=== PATIENT | female | born 1990 | race Caucasian/White ===

== ENCOUNTER 2022-02-03 16:33 | Emergency (ER) | payer SELFPAY ==
--- OUTSIDE RECORDS SUMMARY | 2022-02-03 16:35 | XMS REPORT | Continuity of Care Document ---
:1990 Author Organization [facility] t Address [address] [place] [address] Care Team Providers Name Role Phone Physician, Primary or Family Admitting Clinician Unavailabl e Payers Payer Name Policy Type Policy Number Effective Date Expiration Date S ource Problems This patient has no known problems. Allergies, Adverse Reactions, Alerts Allergy Allergy Status Severity Reaction(s) Onset Inactive Treating Comm ents Source Name Type Date Date Clinician No Known DA Active U 2018-0 [facility] 12-04 Clear s 00:00: Collins 00 [facility] No Known DA Active U [facility] Allergie 12-04 Clear s 00:00: Collins [facility] Medications This patient has no known medications. Procedures This patient has no known procedures. Encounters Start End Encounter Admission Attending Care Care Encounter Source Date/Time Date/Time Type Type Clinicians Facility Department ID 2019-12-16 [facility] [id number] [facility] 15:50:00 [facility] Results Test Description Test Time Test Comments Results Result [facility] e Comments - XR CHEST 1 V 2019-12-16 FAX: 16:45:00 Veena Ahumada MD [phone] [place]: St: REG Name: ARACELIS MCCLENDON Oran FSED : 1990 Age/S: 29/F Unit #: [id number] Loc: [facility] [place], [place] Phys: Veena Ahumada MD Acct: [id number] Dis Date: Status: REG ER PHONE #: Exam Date: 12/16/2019 1630 FAX #: Reason: cough EXAMS: CPT CODE: [id number] XR CHEST 1 V [id number] Portable chest performed December 16, 2019 1624 hours. COMPARISON: June 07, 2019. CLINICAL HISTORY: cough. DISCUSSION: Single portable chest is submitted. Cardiomediastinal silhouette is normal. Lungs are clear. No acute osseous abnormality. IMPRESSION: Normal one view chest x-ray. at 0264 Reported and signed by: Abbi Van M.D. CC: Veena Ahumada MD Technologist: RT Carina(R) Trnscrd Date/Time/By: 12/16/2019 (5713) : By: Latrice Orig Print D/T: S: 12/16/2019 (6867) PAGE 1 Signed Report INFLUENZA A B POC 2019-12-16 16:17:00 Test Item Value Reference Range Interpretation Comme nts INFLUENZA A POC (test code = NEGATIVE NEGATIVE INFLAAG) INFLUENZA B POC (test code = POSITIVE NEGATIVE Performed by certified seam press operator INFLBAG) at [facility] STREP [facility] A (THROAT)2019-12-16 16:12:00 Test Item Value Reference Range Interpretation Comments AG STREP GROUP A NEGATIVE Negative Performed b y certified (THROAT) (test code = operat or at [place] STREPA) [facility] BASIC METABOLIC [id number] 20:53:00 Test Item Value Reference Range Interpretation Comments SODIUM (test code = 136 mmol/l 134.0-147.0 N NA) POTASSIUM (test code = 4.2 mmol/L 3.6-5.2 N SLIGH TLY HEMOLYSED. K) CHLORIDE (test code = 103 mmol/l 98.0-107.0 N CL) CARBON DIOXIDE (test 27.6 mmol/l 21.0-33.0 N code = CO2) ANION GAP (test code = 9.6 0-20 N GAP) GLUCOSE (test code = 107 mg/dl 70.0-110.0 N GLU) BLOOD UREA NITROGEN 12 mg/dl 7.0-18.0 N (test code = BUN) CREATININE (test code 0.59 mg/dL 0.60-1.30 L = CREAT) GFR NON BLACK (test 128 mL/min 110-120 H code = GFRNONBLACK) GFR BLACK (test code = 154 mL/min 133-145 H GFRBLACK) CALCIUM (test code = 8.4 mg/dl 8.0-10.5 N CA) BASIC METABOLIC [id number] 20:46:00 Test Item Value Reference Range Interpretation Comments SODIUM (test code = NA) 136 mmol/l 134.0-147.0 N POTASSIUM (test code = K) 4.2 mmol/L 3.6-5.2 N CHLORIDE (test code = CL) 103 mmol/l 98.0-107.0 N CARBON DIOXIDE (test code = CO2) 27.6 mmol/l 21.0-33.0 N ANION GAP (test code = GAP) 9.6 0-20 N GLUCOSE (test code = GLU) 107 mg/dl 70.0-110.0 N BLOOD UREA NITROGEN (test code = 12 mg/dl 7.0-18.0 N BUN) CREATININE (test code = CREAT) 0.59 mg/dL 0.60-1.30 L GFR NON BLACK (test code = 128 mL/min 110-120 H GFRNONBLACK) GFR BLACK (test code = GFRBLACK) 154 mL/min 133-145 H CALCIUM (test code = CA) 8.4 mg/dl 8.0-10.5 N TROPONIN I [id number] 20:45:00 Test Item Value Reference Range Interpretation Comments TROPONIN I RAPID 0.01 0.00-0.08 N Negati ve: <= 0.08 (test code = Positive: > = 0.09An TROPIRAP) elevated tropon in value alone is not sufficie nt todiagnose a myocardial infa rction. Rather, the patient'scl inical presentation (h istory, physical exam) and ECGshould be used in conj unction with troponin in the diagnostic evaluation of s uspected myocardial infa rction.A serial sampling protoc ol is recommended to facilitatethe identification of temporal changes in trop onin levelscharacter isrhina [facility]. CBC W/AUTO [id number] 20:45:00 Test Item Value Reference Range Interpretation Comments WHITE BLOOD CELL (test code = 6.8 K/mm3 4.5-11.0 N WBC) RED BLOOD CELL (test code = 4.32 M/mm3 3.80-5.20 N RBC) HEMOGLOBIN (test code = HGB) 13.4 gm/dL 12.0-16.0 N HEMATOCRIT (test code = HCT) 39.6 % 36.0-48.0 N MEAN CELL VOLUME (test code = 91.7 UM3 82.0-99.0 N MCV) MEAN CELL HGB (test code = MCH) 31.0 UUG 25.5-32.5 N MEAN CELL HGB CONCETRATION 33.8 gm/dL 29.0-35.5 N (test code = MCHC) RED CELL DISTRIBUTION WIDTH 13.4 % 11.5-15.0 N (test code = RDW) RED CELL DISTRIBUTION WIDTH SD 45.4 fL 34.8-50.2 N (test code = RDW-SD) PLATELET COUNT (test code = 283 K/mm3 150-400 N PLT) MEAN PLATELET VOLUME (test code 10.2 fl 7.4-10.4 N = MPV) NEUTROPHIL % (test code = NT%) 66.5 % 49.0-76.0 N IMMATURE GRANULOCYTE % (test 0.1 % 0.0-0.4 N code = IG%) LYMPHOCYTE % (test code = LY%) 26.5 % 23.0-38.0 N MONOCYTE % (test code = MO%) 5.3 % 1.0-10.0 N EOSINOPHIL % (test code = EO%) 1.0 % 1.0-5.0 N BASOPHIL % (test code = BA%) 0.6 % 0.0-1.0 N NEUTROPHIL # (test code = NT#) 4.5 K/mm3 2.4-6.3 N IMMATURE GRANULOCYTE # (test 0.01 x10 3/uL 0.00-0.07 N code = IG#) LYMPHOCYTE # (test code = LY#) 1.8 K/mm3 1.2-4.0 N MONOCYTE # (test code = MO#) 0.4 K/mm3 0.0-0.6 N EOSINOPHIL # (test code = EO#) 0.1 K/MM3 0.0-0.7 N BASOPHIL # (test code = BA#) 0.0 K/mm3 0.0-0.2 N - XR CHEST 1 [id number] 20:26:00 FAX: HernadezJesús [phone] [place]: St: PRE Name: JOCELYN MCCLENDONJenna [facility] : 1990 Age/S: 28/F [address] [facility] [employer] [employer] Unit#: [id number] Loc: [place], [place] Phys: Jesú[place] [id number] Acct: [id number] Dis Date: Status: PRE ER PHONE #: [phone] Exam Date: 06/07/20192022 FAX #: [phone] Reason: SOB EXAMS: CPT CODE: [id number] XR CHEST 1 V [id number] CHEST X- RAY 1 VIEW Dictation Location: N13 CLINICAL HISTORY: Shortness of breath Technique: A single frontal view of the chest was obtained. FINDINGS: Bony structures are unremarkable. The aortic, hilar and cardiac outlines are normal. The lungs are clear of infiltrates or suspicious nodules. No pleural effusion or pneumothorax. IMPRESSION: Normal chest x-ray. at 2025 Reported and signed by: Claudia Mcclendon M.D. CC: Jesús Hernadez DO Technologist: RITA GOMEZ Trntaord Date/Time/By: 06/07/2019 (2025) : By: AndrésMVT PAGE 1 Signed Report FAX: Jesús Hernadez DO [phone] [place]: St: PRE -- Name: ARACELIS MCCLENDON [facility] : 1990 Age/S: 28/F [address] Unit #: [id number] Loc: [facility] [place], [place] Phys: [place] [id number] Acct: [id number] Dis Date: Status: PRE ER PHONE #: [phone] Date: 06/07/20192022 FAX #: [phone] Reason: SOB EXAMS: CPT CODE: [id number] XR CHEST 1 V 23943 <Continued> Orig Print D/T: S: 06/07/2019 (2028) PAGE 2 Signed Report
[2022-02-03] MEDS ORDERED: HYDROCODONE/APAP 10/325 TAB ONE (16:50)
--- NOTE | 2022-02-03 17:55 | RAD REPORT ---
EXAM DESCRIPTION: RAD - Lumbar Spine 3 Views - 02/03/2022 5:35 pm CLINICAL HISTORY: Back pain FINDINGS: The alignment of the lumbar spine is satisfactory. Bony density adjacent to the anterior superior aspect L4 vertebral body appears chronic. No acute fra cture or dislocation noted
--- NOTE | 2022-02-03 17:56 | RAD REPORT ---
EXAM DESCRIPTION: RADSacrum And Coccyx02/03/2022 5:35 pm CLINICAL HISTORY: Back pain status post fall FINDINGS: Cortical regularity involves the mid aspect of the sacrum equivocal for a nondisplaced fr acture
--- NOTE | 2022-02-03 18:14 | ER ---
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 Buttocks pain ll1 since. Coronavirus screen: Vaccine status: Patient reports being unvaccinated. Client denies travel out of the [place] in the last 14 days. At this time, the client does not indicate any symptoms associated with coronavirus-19. Ebola Screen: Patient denies travel to an Ebola-affected area in the 21 days before illness onset. Initial Sepsis Screen: Does the patient meet any 2 criteria? No. Patient's initial sepsis screen is negative. Does the patient have a suspected source of infection? No. Patient's initial sepsis screen is negative. Risk Assessment: Do you want to hurt yourself or someone else? Patient reports no desire to harm self or others. Onset of symptoms was February 03, 2022. 16:42 Method Of Arrival: Ambulatory ll1 16:42 Acuity: KAYLEE 4 ll1 16:51 Care prior to arrival: None. Mechanism of Injury: Fall. Trauma event details: Injury ll1 occurred in the [facility]. Triage Assessment: 16:45 General: Appears uncomfortable, Behavior is calm, cooperative, appropriate for age. ll1 Pain: Complains of pain in buttocks Quality of pain is described as aching. Musculoskeletal: Reports pain in buttocks. Injury Description: Bruise. Trauma Activation: Not Applicable Physician: ED Physician; Name: ; Notified At: ; Arrived At: Physician: General Surgeon; Name: ; Notified At: ; Arrived At: Physician: Radiology; Name: ; Notified At: ; Arrived At: Physician: Respiratory; Name: ; Notified At: ; Arrived At: Physician: Lab; Name: ; Notified At: ; Arrived At: Historical: - Allergies: 16:43 No Known Allergies; ll1 - PMHx: 16:43 Asthma; ll1 - PSHx: 16:43 None; ll1 - Immunization history:: Client reports having NOT received the Covid vaccine. - Social history:: Smoking status: Patient denies any tobacco usage or history of. - Immunization history: Last tetanus immunization: - up to date. Screenin:50 Abuse screen: Denies threats or abuse. Nutritional screening: No deficits noted. ll1 Tuberculosis screening: No symptoms or risk factors identified. Fall Risk Fall in past 12 months (25 points). Gait- Impaired (20 pts.). Total N[place]era Fall Scale indicates High Risk Score (45 or more points). Fall prevention measures have been instituted. Side Rails Up X 2 Frequent Obs/Assessments Occuring As available patient and family educated on Fall Prevention Program and Strategies. Primary Survey: 16:50 NO uncontrolled hemorrhage observed. A: Airway: patent. Breathing/Chest: Respiratory ll1 effort: spontaneous, unlabored. Circulation: Skin color: pink. Disability Alert. Exposure/Environment: A warming method has been applied: A warm blanket has been provided to the patient. 16:51 Reassessment Airway Airway Patent Breathing/Chest Respiratory pattern Regular ll1 Circulation Color Point View Disability Alert. Assessment: 17:25 General: Appears in no apparent distress. uncomfortable, Behavior is calm, cooperative, ab2 appropriate for age. Pain: Complains of pain in right hip. Neuro: No deficits noted. Level of Consciousness is awake, alert, obeys commands, Oriented to person, place, time, situation, Appropriate for age Sexual Abuse Counsellor are equal bilaterally Moves all extremities. Gait is steady, Speech is normal. Cardiovascular: No deficits noted. Denies chest pain, shortness of breath, Heart tones S1 S2 present Patient's skin is warm and dry. Respiratory: No deficits noted. Airway is patent Respiratory effort is even, unlabored, Respiratory pattern is regular, symmetrical. GI: No deficits noted. No signs and/or symptoms were reported involving the gastrointestinal system. : No deficits noted. No signs and/or symptoms were reported regarding the genitourinary system. EENT: No deficits noted. No signs and/or symptoms were reported regarding the EENT system. Derm: No deficits noted. No signs and/or symptoms reported regarding the dermatologic system. Skin is intact, is healthy with good turgor, Skin is pink, warm \T\ dry. Musculoskeletal: Reports pain in right hip. Injury Description: Pt fell down stairs landed on right leg. Vital Signs: 16:42 BP 119 / 98; Pulse 96; Resp 18; Temp 98.3; Pulse Ox 100% ; Height 4 ft. 11 in. (149.86 ll1 cm); Pain 6/10; 18:24 BP 126 / 89; Pulse 91; Resp 18; Pulse Ox 98% on R/A; ab2 Ar Coma Score: 16:51 Eye Response: spontaneous(4). Verbal Response: oriented(5). Motor Response: obeys ll1 commands(6). Total: 15. Trauma Score (Adult): 16:51 Eye Response: spontaneous(1); Verbal Response: oriented(1); Motor Response: obeys ll1 commands(2); Systolic BP: > 89 mm Hg(4); Respiratory Rate: 10 to 29 per min(4); Ar Score: 15; Trauma Score: 12 ED Course: 16:35 Patient arrived in ED. ds1 16:43 Triage completed. ll1 16:43 Arm band placed on. ll1 16:47 Koby Reza PA is PHCP. jr8 16:47 Jason Magallon DO is Attending Physician. jr8 16:51 Patient maintains SpO2 saturation greater than 95% on room air. ll1 16:52 Patient has correct armband on for positive identification. Bed in low position. Call ll1 light in reach. Side rails up X 1. Cardiac monitoring not applicable on this patient. 16:52 Thermoregulation: warm blanket given to patient. ll1 17:25 Mac Irwin is Primary Nurse. ab2 17:26 No provider procedures requiring assistance completed. ab2 17:36 XRAY Lumbar Spine (3 Views) In Process Unspecified. EDMS 17:36 Sacrum And Coccyx XRAY In Process Unspecified. EDMS 18:25 Patient did not have IV access during this emergency room visit. ab2 Administered Medications: 16:49 Drug: [place] (HYDROcodone-acetaminophen) 10 mg-325 mg 1 tabs {Note: rass 0.} Route: PO; ll1 Outcome: 18:13 Discharge ordered by . jr8 18:24 Discharged to home ambulatory, with family. ab2 18:24 Condition: good 18:24 Discharge instructions given to patient, family, Instructed on discharge instructions, follow up and referral plans. Demonstrated understanding of instructions, follow-up care, medications, Prescriptions given X 1. 18:25 Patient left the ED. ab2 Signatures: Dispatcher [employer] Samantha Tong ds1 Koby Reza PA PA jr8 Deepali Jones RN RN ll1 Mac Irwin ab2
--- NOTE | 2022-02-03 18:14 | EDPHYS ---
Physician Documentation [facility] Name: Marcella Mcclendon Age: 31 yrs Sex: Female : 1990 Arrival Date: 02/03/2022 Time: 16:35 Bed 11 Private MD: ED Physician Jason Magallon HPI: 02/03 18:18 This 31 yrs old Female presents to ER via Ambulatory with complaints of Fall Injury. jr8 18:18 Onset: The symptoms/episode began/occurred acutely, today. Associated injuries: The jr8 patient sustained pelvis. Severity of symptoms: At their worst the symptoms were moderate, in the emergency department the symptoms are unchanged. The patient has not experienced similar symptoms in the past. The patient has not recently seen a physician. This is a 31-year-old female who presented to the emergency room status post fall. Patient stated that she was coming down the stairs when she slipped causing her to fall on her buttock. Stated that she bounced a couple times and immediately had pain to the tailbone region. Denies any other trauma. Historical: - Allergies: 16:43 No Known Allergies; ll1 - PMHx: 16:43 Asthma; ll1 - PSHx: 16:43 None; ll1 - Immunization history:: Client reports having NOT received the Covid vaccine. - Social history:: Smoking status: Patient denies any tobacco usage or history of. - Immunization history: Last tetanus immunization: - up to date. ROS: 18:18 Eyes: Negative for injury, pain, redness, and discharge, ENT: Negative for injury, jr8 pain, and discharge, Neck: Negative for injury, pain, and swelling, Cardiovascular: Negative for chest pain, palpitations, and edema, Respiratory: Negative for shortness of breath, cough, wheezing, and pleuritic chest pain, Abdomen/GI: Negative for abdominal pain, nausea, vomiting, diarrhea, and constipation, MS/Extremity: Negative for injury and deformity, Skin: Negative for injury, rash, and discoloration, Neuro: Negative for headache, weakness, numbness, tingling, and seizure. 18:18 Back: Positive for pain at rest, pain with movement, of the sacrum. Exam: 18:18 Constitutional: This is a well developed, well nourished patient who is awake, alert, jr8 and in no acute distress. Cardiovascular: Regular rate and rhythm with a normal S1 and S2. No gallops, murmurs, or rubs. Normal PMI, no JVD. No pulse deficits. Respiratory: Lungs have equal breath sounds bilaterally, clear to auscultation and percussion. No rales, rhonchi or wheezes noted. No increased work of breathing, no retractions or nasal flaring. Abdomen/GI: Soft, non-tender, with normal bowel sounds. No distension or tympany. No guarding or rebound. No evidence of tenderness throughout. Skin: Warm, dry with normal turgor. Normal color with no rashes, no lesions, and no evidence of cellulitis. MS/ Extremity: Pulses equal, no cyanosis. Neurovascular intact. Full, normal range of motion. Neuro: Awake and alert, GCS 15, oriented to person, place, time, and situation. Cranial nerves II-XII grossly intact. Motor strength 5/5 in all extremities. Sensory grossly intact. 18:18 Back: pain, that is moderate, of the sacrum, ROM is normal, normal spinal alignment noted, CVA tenderness, is absent. Vital Signs: 16:42 BP 119 / 98; Pulse 96; Resp 18; Temp 98.3; Pulse Ox 100% ; Height 4 ft. 11 in. (149.86 ll1 cm); Pain 6/10; 18:24 BP 126 / 89; Pulse 91; Resp 18; Pulse Ox 98% on R/A; ab2 Ar Coma Score: 16:51 Eye Response: spontaneous(4). Verbal Response: oriented(5). Motor Response: obeys ll1 commands(6). Total: 15. Trauma Score (Adult): 16:51 Eye Response: spontaneous(1); Verbal Response: oriented(1); Motor Response: obeys ll1 commands(2); Systolic BP: > 89 mm Hg(4); Respiratory Rate: 10 to 29 per min(4); Ar Score: 15; Trauma Score: 12 MDM: 16:54 Patient medically screened. jr8 18:08 Data reviewed: vital signs, nurses notes, radiologic studies, plain films. Data jr8 interpreted: Pulse oximetry: on room air is 100 %. Interpretation: normal. Counseling: I had a detailed discussion with the patient and/or guardian regarding: the historical points, exam findings, and any diagnostic results supporting the discharge/admit diagnosis, radiology results, the need for outpatient follow up, a family practitioner, to return to the emergency department if symptoms worsen or persist or if there are any questions or concerns that arise at home. 02/03 16:48 Order name: XRAY Lumbar Spine (3 Views); Complete Time: 18:06 jr8 02/03 16:48 Order name: Sacrum And Coccyx XRAY; Complete Time: 18:06 jr8 Administered Medications: 16:49 Drug: [place] (HYDROcodone-acetaminophen) 10 mg-325 mg 1 tabs {Note: rass 0.} Route: PO; ll1 Disposition: 02/04 18:11 Co-signature as Attending Physician, Jason Magallon DO I was immediately available on-site ms3 in the Emergency Department for consultation in the care of the patient.. Disposition Summary: 02/03/22 18:13 Discharge Ordered Location: Home jr8 Problem: new jr8 Symptoms: have improved jr8 Condition: Stable jr8 Diagnosis - Fracture of sacrum jr8 Followup: jr8 - With: Private Physician - When: 5 - 6 days - Reason: Recheck today's complaints, Continuance of care, Re-evaluation by your physician Discharge Instructions: - Discharge Summary Sheet jr8 - Tailbone Injury jr8 Forms: - Medication Reconciliation Form jr8 - Thank You Letter jr8 - Antibiotic Education jr8 - Prescription Opioid Use jr8 Prescriptions: - Tylenol-Codeine #3 300 mg-30 mg Oral - take 2 tablet by ORAL route every 8 hours As needed; 20 tablet; Refills: 0, jr8 Product Selection Permitted Signatures: Dispatcher [employer] EDKoby Lin PA PA jr8 Deepali Jones, RN RN ll1 Jason Magallon DO DO ms3
[2022-02-03 19:01] VITALS: TEMP 98.3
[2022-02-03 19:02] VITALS: BP 126/89; O2SAT 98
== END 2022-02-03 18:25 | disposition home or self-care (01) ==
LOC: ER 16:33
DX: S32.19XA Other fracture of sacrum, initial encounter for closed fracture (principal); W10.9XXA Fall (on) (from) unspecified stairs and steps, initial encounter
CPT/HCPCS: 72100; 72220; 99284

== ENCOUNTER 2024-12-08 23:25 | Emergency (ER) | payer SELFPAY ==
--- OUTSIDE RECORDS SUMMARY | 2024-12-08 23:27 | XMS REPORT | Continuity of Care Document ---
Author Name Unknown Address [address] [facility]. 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 Role Phone Physician, No Primary or Family Admitting Clinic fay Unavailable Payers Payer Name Policy Type Policy Number Effective Date Expirati on Date Source Allergies, Adverse Reactions, Alerts Allergy Name Allergy Type Status Severity Reaction(s) Onset Date Inactive Date Treating Clinician Comments Source No Known Allergie s DA Active U 12-04 00:00: 00 [facility] No Known Allergie s DA Active U 12-04 00:00: 00 [facility] Encounters Start Date/Time End Date/Time Encounter Type Admission Type Attending Clinicians Care Facility Care Department Encounter ID Source 2019-12-16 15:50:00 Inpatient HCACL CHENCHO [id number] 73 [facility] 2023-11-08 14:32:37 2023-11-08 14:32:37 Outpatient [facility] SFA [id number] Rod Carballo Results Test Description Test Time Test Comments Results Result Co mments Source LIPID [id number] 05:11:52* Test Item Value Reference Range Interpretation Comme nts CHOLESTEROL (test code = 2210) 179 MG/DL <200 TRIGLYCERIDES (test code = 2232) 87 MG/DL <150 HDL CHOLESTEROL (test code = 2220) 40 MG/DL >39 CALC LDL CHOL (test code = 2236) 120 MG/DL <100 H NOTE: CALCULATED LDL IS BASED ON SHAHLA-RICHARDS METHOD WHICHINCLUDES ADJUSTABLE TRIGLYCERIDE:VLDL CHOLESTEROL RATIO.THIS FACTOR VARIES BY MEASURED TRIGLYCERIDE AND NON-HDLCHOLESTEROL CONCENTRATIONS WITH INCREASED CALCULATED LDL SEENIN HIGHER TRIGLYCERIDE OR LOWER NON-HDL SPECIMENS. FOR MOREINFORMATION, SEE CLIENT ANNOUNCEMENT AT [email or web address] RISK RATIO LDL/HDL (test code = 2237) 3.00 RATIO <3.22 COMPREHENSIVE METABOLIC [id number] 05:11:52* Test Item Value Reference Range Interpretation Comme nts GLUCOSE (test code = 2216) 91 MG/DL 70-99 BUN (test code = 2207) 11 MG/DL 6-20 CREATININE (test code = 2213) 0.58 MG/DL 0.60-1.30 L eGFR (2020 CKD-EPI) (test code = 06350) 122 ML/MIN/1.73 >60 CALC BUN/CREAT (test code = 5) 19 RATIO 6-28 SODIUM (test code = 2230) 141 MEQ/L 133-146 POTASSIUM (test code = 2228) 5.1 MEQ/L 3.5-5.4 CHLORIDE (test code = 2215) 105 MEQ/L 95-107 CARBON DIOXIDE (test code = 2206) 24 MEQ/L 19-31 CALCIUM (test code = 2209) 9.4 MG/DL 8.5-10.5 PROTEIN, TOTAL (test code = 2228) 6.7 G/DL 6.1-8.3 ALBUMIN (test code = 2200) 4.4 G/DL 3.5-5.2 CALC GLOBULIN (test code = 2240) 2.3 G/DL 1.9-3.7 CALC A/G RATIO (test code = 223) 1.9 RATIO 1.0-2.6 BILIRUBIN, TOTAL (test code = 2206) 0.3 MG/DL <=1.2 ALKALINE PHOSPHATASE (test code = 2203) 106 U/L 40-114 AST (test code = 2218) 17 U/L 9-40 ALT (test code = 2219) 21 U/L 5-40 CBC W/AUTO DIFF WITH [id number] 01:46:53* Test Item Value Reference Range Interpretation Comme nts WBC (test code = 1001) 5.5 K/UL 3.5-11.0 RBC (test code = 1002) 4.80 M/UL 3.80-5.40 HEMOGLOBIN (test code = 1003) 14.2 G/DL 11.5-15.5 HEMATOCRIT (test code = 1004) 43.0 % 34.0-45.0 MCV (test code = 1005) 89.6 fL 80.0-99.0 MCH (test code = 1006) 29.6 PG 25.0-33.0 MCHC (test code = 1007) 33.0 G/DL 31.0-36.0 RDW (test code = 1038) 12.4 % 11.5-15.0 NEUTROPHILS (test code = 1008) 49.2 % LYMPHOCYTES (test code = 1010) 39.1 % MONOCYTES (test code = 1011) 8.1 % EOSINOPHILS (test code = 1012) 2.5 % BASOPHILS (test code = 1013) 0.7 % IMMATURE GRANULOCYTES (test code = 1036) 0.4 % NUCLEATED RBCS (test code = 1065) 0.0 /100 WBC'S See_Comment [Automated messa ge] The system which generated this result transmitted reference range: 0.0. The reference range was not used to interpret this result as normal/abnormal. PLATELET COUNT (test code = 1015) 293 K/UL 130-400 ABSOLUTE NEUTROPHILS (test code = 1066) 2.72 K/UL 1.50-7.50 ABSOLUTE LYMPHOCYTES (test code = 1067) 2.16 K/UL 1.00-4.00 ABSOLUTE MONOCYTES (test code = 1068) 0.45 K/UL 0.20-1.00 ABSOLUTE EOSINOPHILS (test code = 1040) 0.14 K/UL 0.00-0.50 ABSOLUTE BASOPHILS (test code = 1069) 0.04 K/UL 0.00-0.20 ABS IMMATURE GRANULOCYTES (test code = 1020) 0.02 K/UL 0.00-0.10 ABS NUCLEATED RBCS (test code = 14829) 0.00 K/UL 0.00-0.11 - XR CHEST 1 [id number] 16:45:00FAX: Veena Ahumada MD [phone] [place]: St: REG Name: ARACELIS MCCLENDON [place] FSED : 1990 Age/S: 29/F Unit #: [id number] Loc: [place], [place] Phys: Veena Ahumada MD Acct: [id number] Dis Date: Status: REG ER PHONE #: Exam Date: 12/16/2019 1630 FAX #: Reason: cough EXAMS: CPT CODE: [id number] XRCHEST 1 V 75105 Portable chest performed December 16, 2019 1624 hours. COMPARISON: June 07, 2019. CLINICAL HISTORY: cough. DISCUSSION: Single portable chest is submitted. Cardiomediastinal silhouetteis normal. Lungs are clear. No acute osseous abnormality. IMPRESSION: Normal one view chest x-ray. at 9062 Reported and signed by: Abbi Van M.D. 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 CHLORIDE (test code = CL) 103 mmol/l 98.0-107.0 N CARBON DIOXIDE (test code = CO2) 27.6 mmol/l 21.0-33.0 N ANION GAP (test code = GAP) 9.6 0-20 N GLUCOSE (test code = GLU) 107 mg/dl 70.0-110.0 N BLOOD UREA NITROGEN (test code = BUN) 12 mg/dl 7.0-18.0 N CREATININE (test code = CREAT) 0.59 mg/dL 0.60-1.30 L GFR NON BLACK (test code = GFRNONBLACK) 128 mL/min 110-120 H GFR BLACK (test code = GFRBLACK) 154 mL/min 133-145 H CALCIUM (test code = CA) 8.4 mg/dl 8.0-10.5 N BASIC METABOLIC [id number] 20:46:00* Test Item Value Reference Range Interpretation Comme nts SODIUM (test code = NA) 136 mmol/l 134.0-147.0 N POTASSIUM (test code = K) 4.2 mmol/L 3.6-5.2 N CHLORIDE (test code = CL) 103 mmol/l 98.0-107.0 N CARBON DIOXIDE (test code = CO2) 27.6 mmol/l 21.0-33.0 N ANION GAP (test code = GAP) 9.6 0-20 N GLUCOSE (test code = GLU) 107 mg/dl 70.0-110.0 N BLOOD UREA NITROGEN (test co de = BUN) 12 mg/dl 7.0-18.0 N CREATININE (test code = CREAT) 0.59 mg/dL 0.60-1.30 L GFR NON BLACK (test code = GFRNONBLACK) 128 mL/min 110-120 H GFR BLACK (test code = GFRBLACK) 154 mL/min 133-145 H CALCIUM (test code = CA) 8.4 mg/dl 8.0-10.5 N TROPONIN I [id number] 20:45:00* Test Item Value Reference Range Interpretation Comme nts TROPONIN I RAPID (test code = TROPIRAP) 0.01 0.00-0.08 N Negative: <= 0.0 8 Positive: >= 0.09An elevated troponin value alone is not sufficient todiagnose a myocardial infarction. Rather, the patient'sclinical presentation (history, physical exam) and ECGshould be used in conjunction with troponin in thediagnostic evaluation of suspected myocardial infarction.A serial sampling protocol is recommended to facilitatethe identification of temporal changes in troponin levelscharacteristic of MD. CBC W/AUTO [id number] 20:45:00* Test Item Value Reference Range Interpretation Comme nts WHITE BLOOD CELL (test code = WBC) 6.8 K/mm3 4.5-11.0 N RED BLOOD CELL (test code = RBC) 4.32 M/mm3 3.80-5.20 N HEMOGLOBIN (test code = HGB) 13.4 gm/dL 12.0-16.0 N HEMATOCRIT (test code = HCT) 39.6 % 36.0-48.0 N MEAN CELL VOLUME (test code = MCV) 91.7 UM3 82.0-99.0 N MEAN CELL HGB (test code = MCH) 31.0 UUG 25.5-32.5 N MEAN CELL HGB CONCETRATION (test code = MCHC) 33.8 gm/dL 29.0-35.5 N RED CELL DISTRIBUTION WIDTH (test code = RDW) 13.4 % 11.5-15.0 N RED CELL DISTRIBUTION WIDTH SD (test code = RDW-SD) 45.4 fL 34.8-50.2 N PLATELET COUNT (test code = PLT) 283 K/mm3 150-400 N MEAN PLATELET VOLUME (test c ode = MPV) 10.2 fl 7.4-10.4 N NEUTROPHIL % (test code = NT%) 66.5 % 49.0-76.0 N IMMATURE GRANULOCYTE % (test code = IG%) 0.1 % 0.0-0.4 N LYMPHOCYTE % (test code = LY%) 26.5 % 23.0-38.0 N MONOCYTE % (test code = MO%) 5.3 % 1.0-10.0 N EOSINOPHIL % (test code = EO%) 1.0 % 1.0-5.0 N BASOPHIL % (test code = BA%) 0.6 % 0.0-1.0 N NEUTROPHIL # (test code = NT#) 4.5 K/mm3 2.4-6.3 N IMMATURE GRANULOCYTE # (test code = IG#) 0.01 x10 3/uL 0.00-0.07 N LYMPHOCYTE # (test code = LY#) 1.8 K/mm3 1.2-4.0 N MONOCYTE # (test code = MO#) 0.4 K/mm3 0.0-0.6 N EOSINOPHIL # (test code = EO#) 0.1 K/MM3 0.0-0.7 N BASOPHIL # (test code = BA#) 0.0 K/mm3 0.0-0.2 N - XR CHEST 1 [id number] 20:26:00FAX: Jesús Hernadez DO [phone] [place]: St: PRE Name: SKYEARACELIS [facility] : 1990 Age/S: 28/F [address] [facility] Unit #: [id number] Loc: [place], [place] Phys: Jesú[place] [address] Acct: [id number] Dis Date: Status: PRE ER PHONE #: [phone] Exam Date: 06/07/20192022 FAX #: [phone] Reason: SOB EXAMS: CPT CODE: [id number] XR CHEST 1 V 32152 CHEST X-RAY 1 VIEW Dictation Location: N13 CLINICAL HISTORY: [...] CC: Jesús Hernadez DO Technologist: RITA GOMEZ Trnscrd Date/Time/By: 06/07/2019 (2025) : By: Saad PAGE 1 Signed Report FAX: Hero Hernadez [phone] [place]: St: PRE Name: JOCELYN MCCLENDONJenna [facility] : 1990 Age/S: 28/F [address] [facility] Unit #: [id number] [place] Phys: Jesú[place] [address] Acct: [id number] Dis Date: Status: PRE ER PHONE #: [phone] Exam Date: 06/07/20192022 FAX #: [phone] Reason: SOB EXAMS: CPT CODE: [id number] XR CHEST 1 V 96945 (Continued) Orig Print D/T: S: 06/07/2019 (2028) PAGE 2 Signed Report
[2024-12-09] MEDS ORDERED: KETOROLAC 10 MG TAB ONE (00:46)
[2024-12-09] MEDS ORDERED: BENZONATATE 100 MG CAP PO ONE (00:46)
[2024-12-09] MEDS ORDERED: PROMETHAZINE 25 MG TABLET ONE (00:46)
[2024-12-09] MEDS ORDERED: CODEINE 30MG/APAP 300MG TAB ONE (00:46)
[2024-12-09] MEDS ORDERED: GUAIFENESIN/DM 5 ML UCUP ONE (00:47)
[2024-12-09 01:19] LABS: Specific Gravity 1.028 (1.005-1.030)
[2024-12-09 01:20] LABS: Specific Gravity 1.028 (1.005-1.030); Sqamous Epithelial <5 /HPF (None Seen); Urine Bacteria None Seen /HPF (<20); Urine Bilirubin NEGATIVE (Negative); Urine Blood 2+ (Negative); Urine Clarity Turbid (Clear); Urine Color Yellow (Yellow); Urine Culture Reflex Order NOT NEEDED; Urine Glucose NEGATIVE (Negative); Urine Ketones 2+ (Negative); Urine Micro Reflex YN NO BILL MICROSCOPIC; Urine Mucus Slight /HPF (None Seen); Urine Nitrite NEGATIVE (Negative); Urine Protein TRACE (Negative); Urine RBC >50 /HPF (None Seen); Urine Urobilinogen Normal (Normal); Urine WBC <5 /HPF (<5); Urine pH 5.5 (5.0-7.0)
--- NOTE | 2024-12-09 01:42 | ER ---
Nurse's Notes [facility] Name: Marcella Mcclendon Age: 34 yrs Sex: Female : 1990 Arrival Date: 12/08/2024 Time: 23:25 Bed 14 Private MD: Diagnosis: Acute Influenza A ;Acute viral illness, acute viral bronchitis Presentation: 12/09 00:00 Chief complaint: Patient states: CHEST WALL PAIN WHEN COUGHING, DRY COUGH. MY SON HAS ha1 FLU A. 00:00 Coronavirus screen: Client denies travel out of the [place] in the last 14 days. Ebola ha1 Screen: No symptoms or risks identified at this time. Initial Sepsis Screen: Does the patient meet any 2 criteria? No. Patient's initial sepsis screen is negative. Does the patient have a suspected source of infection? No. Patient's initial sepsis screen is negative. Risk Assessment: Do you want to hurt yourself or someone else? Patient reports no desire to harm self or others. Onset of symptoms was December 09, 2024. 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 - Infectious Disease History:: Denies. - Social history:: Smoking status: Patient denies any tobacco usage or history of. - Family history:: not pertinent. Screenin:41 [facility] ED Fall Risk Assessment (Adult) History of falling in the last 3 months, cp4 including since admission No falls in past 3 months (0 pts) Confusion or Disorientation No (0 pts) Intoxicated or Sedated No (0 pts) Impaired Gait No (0 pts) Mobility Assist Device Used No (0 pt) Altered Elimination No (0 pt) Score/Fall Risk Level 0 - 2 = Low Risk Oriented to surroundings, Maintained a safe environment, Assessed \T\ reinforced patient's understanding of fall precautions, Hourly rounding (assess needs \T\ fall precautionary measures) done. Abuse screen: Denies threats or abuse. Denies injuries from another. Nutritional screening: No deficits noted. Tuberculosis screening: No symptoms or risk factors identified. Assessment: 00:41 General: Appears in no apparent distress. comfortable, Behavior is calm, cooperative, cp4 appropriate for age. Pain: Complains of pain in chest Pain does not radiate. Pain currently is 6 out of 10 on a pain scale. Pain began gradually. Neuro: Level of Consciousness is awake, alert, obeys commands, Oriented to person, place, time, situation. Cardiovascular: Patient's skin is warm and dry. Respiratory: Airway is patent Respiratory effort is even, unlabored. GI: No signs and/or symptoms were reported involving the gastrointestinal system. : No signs and/or symptoms were reported regarding the genitourinary system. EENT: No signs and/or symptoms were reported regarding the EENT system. Derm: No signs and/or symptoms reported regarding the dermatologic system. Musculoskeletal: No signs and/or symptoms reported regarding the musculoskeletal system. Vital Signs: 00:00 BP 141 / 82; Pulse 100; Resp 18 S; Temp 100(O); Pulse Ox 98% on R/A; Weight 91.17 kg; ha1 Height 4 ft. 1 in. ; 01:57 BP 137 / 80; Pulse 94; Resp 18; Pulse Ox 100% ; cp4 00:00 Body Mass Index 58.86 (91.17 kg, 124.46 cm) ha1 Ar Coma Score: 02:26 Eye Response: spontaneous(4). Motor Response: obeys commands(6). Verbal Response: sp4 oriented(5). Total: 15. ED Course: 12/08 23:25 Patient arrived in ED. jj6 23:32 Antoine Hansen MD is Attending Physician. sp4 12/09 00:15 Triage completed. ha1 00:40 Janna Singleton is Primary Nurse. cp4 00:41 Bed in low position. Call light in reach. Side rails up X 1. Client placed on cp4 continuous cardiac and pulse oximetry monitoring. NIBP monitoring applied. lunchroom monitor on. Pulse ox on. NIBP on. 01:57 Provided Education on: influenza. cp4 01:57 Arm band placed on right wrist. Patient placed in waiting room. cp4 01:57 No provider procedures requiring assistance completed. Patient did not have IV access cp4 during this emergency room visit. Patient maintains SpO2 saturation greater than 95% on room air. Administered Medications: 00:50 Drug: Dextromethorphan-Guaifenesin PO Liquid 10 mg-100 mg/5 mL 20 ml PO once Route: PO; cp4 01:45 Follow up: Response: No adverse reaction cp4 00:51 Drug: Acetaminophen-Codeine PO (300 mg-30 mg) 2 tabs PO once; RASS on ADMIN: Combtv4, cp4 Very Agttd3, Agttd2, Rstlss1, AlertClm0, Drwsy-1, Lt Sdtn-2, Mod Sdtn-3, Dp Sdtn-4, UnArsble-5 Route: PO; 01:44 Follow up: Response: No adverse reaction; Pain is decreased cp4 00:51 Drug: Promethazine PO 25 mg PO once Route: PO; cp4 01:44 Follow up: Response: No adverse reaction cp4 00:51 Drug: Ketorolac PO 10 mg PO once Route: PO; cp4 01:44 Follow up: Response: No adverse reaction; Pain is decreased cp4 00:51 Drug: Tessalon Perle PO 200 mg PO once Route: PO; cp4 01:44 Follow up: Response: No adverse reaction cp4 01:56 Drug: [place] PO 10 mg-325 mg 1 tabs PO once Route: PO; cp4 01:56 Follow up: Response: No adverse reaction cp4 Medication: 00:41 VIS not applicable for this client. cp4 Outcome: 01:42 Discharge ordered by . sp4 01:57 Discharged to home ambulatory, cp4 01:57 Condition: stable 01:57 Discharge instructions given to patient, family, Instructed on discharge instructions, follow up and referral plans. medication usage, Demonstrated understanding of instructions, follow-up care, medications, Prescriptions given X 4, 01:58 Patient left the ED. cp4 Signatures: Shoshana Suarez jj6 Arlet Morrissey RN RN ha1 Antoine Hansen MD MD sp4 Janna Singleton cp4 Corrections: (The following items were deleted from the chart) 00:16 00:00 Chief complaint: Patient states: CHEST WALL PAIN WHEN COUGHING, DRY COUGH ha1 ha1
--- NOTE | 2024-12-09 01:42 | EDPHYS ---
Physician Documentation [facility] Name: Marcella Mcclendon Age: 34 yrs Sex: Female : 1990 Arrival Date: 12/08/2024 Time: 23:25 Bed 14 Private MD: ED Physician Antoine Hansen HPI: 12/08 23:32 This 34 yrs old Female presents to ER via Unassigned with complaints of sp4 Cough, Chest Wall Pain. 12/09 02:26 34-year-old female presents with acute onset fever chills sore throat, chest wall pain sp4 cough and nausea. Symptoms started in the last 3 days. 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 - Infectious Disease History:: Denies. - Social history:: Smoking status: Patient denies any tobacco usage or history of. - Family history:: not pertinent. ROS: 02:26 Constitutional: Positive fever chills, positive sore throat, positive chest wall pain, sp4 positive nonproductive cough, positive nausea, positive body aches 02:26 All other systems are negative, Exam: 02:26 Constitutional: This is a well developed, well nourished patient who is awake, alert, sp4 and in no acute distress. Head/Face: Normocephalic, atraumatic. Eyes: Pupils equal round and reactive to light, extra-ocular motions intact. Lids and lashes normal. Conjunctiva and sclera are not injected. Cornea within normal limits. Periorbital areas with no swelling, redness, or edema. ENT: Nares patent. No nasal discharge, no septal abnormalities noted. Tympanic membranes are normal and external auditory canals are clear. Oropharynx with no redness, swelling, or masses, exudates, or evidence of obstruction, uvula midline. Mucous membranes moist. Neck: Trachea midline, no thyromegaly or masses palpated, and no cervical lymphadenopathy. Supple, full range of motion without nuchal rigidity, or vertebral point tenderness. Chest/axilla: Normal chest wall appearance and motion. Nontender with no deformity. No lesions are appreciated. Cardiovascular: Regular rate and rhythm with a normal S1 and S2. No gallops, murmurs, or rubs. Normal PMI, no JVD. No pulse deficits. Respiratory: Lungs have equal breath sounds bilaterally, clear to auscultation and percussion. No rales, rhonchi or wheezes noted. No increased work of breathing, no retractions or nasal flaring. Abdomen/GI: Soft, with normal bowel sounds. No distension or tympany. No guarding or rebound. No evidence of tenderness throughout. Back: No spinal tenderness. No costovertebral tenderness. Skin: Warm, dry with normal turgor. Normal color with no rashes, no lesions, and no evidence of cellulitis. MS/ Extremity: Pulses equal, no cyanosis. Neurovascular intact. Full, normal range of motion. Neuro: Awake and alert, GCS 15, oriented to person, place, time, and situation. Cranial nerves II-XII grossly intact. Motor strength 5/5 in all extremities. Sensory grossly intact. Psych: Awake, alert, with orientation to person, place and time. Behavior, mood, and affect are within normal limits Vital Signs: 00:00 BP 141 / 82; Pulse 100; Resp 18 S; Temp 100(O); Pulse Ox 98% on R/A; Weight 91.17 kg; ha1 Height 4 ft. 1 in. ; 01:57 BP 137 / 80; Pulse 94; Resp 18; Pulse Ox 100% ; cp4 00:00 Body Mass Index 58.86 (91.17 kg, 124.46 cm) ha1 Edwards Coma Score: 02:26 Eye Response: spontaneous(4). Motor Response: obeys commands(6). Verbal Response: sp4 oriented(5). Total: 15. MDM: 12/08 23:33 Medical Screening Exam initiated sp4 12/09 02:26 Differential Diagnosis: Bronchitis Influenza Upper Respiratory Infection Sinusitis sp4 Pharyngitis. Data reviewed: vital signs, nurses notes, lab test result(s). ED course: Patient positive for influenza A. At this time we will treat with Tamiflu, stable for discharge home.. 12/08 23:42 Order name: Influenza Screen (a \T\ B); Complete Time: 01:37 sp4 12/09 00:06 Order name: Urinalysis W/Microscopic; Complete Time: 01:37 sp4 12/09 00:06 Order name: Test, Urine; Complete Time: 01:37 sp4 Administered Medications: 00:50 Drug: Dextromethorphan-Guaifenesin PO Liquid 10 mg-100 mg/5 mL 20 ml PO once Route: PO; cp4 01:45 Follow up: Response: No adverse reaction cp4 00:51 Drug: Acetaminophen-Codeine PO (300 mg-30 mg) 2 tabs PO once; RASS on ADMIN: Combtv4, cp4 Very Agttd3, Agttd2, Rstlss1, AlertClm0, Drwsy-1, Lt Sdtn-2, Mod Sdtn-3, Dp Sdtn-4, UnArsble-5 Route: PO; 01:44 Follow up: Response: No adverse reaction; Pain is decreased cp4 00:51 Drug: Promethazine PO 25 mg PO once Route: PO; cp4 01:44 Follow up: Response: No adverse reaction cp4 00:51 Drug: Ketorolac PO 10 mg PO once Route: PO; cp4 01:44 Follow up: Response: No adverse reaction; Pain is decreased cp4 00:51 Drug: Tessalon Perle PO 200 mg PO once Route: PO; cp4 01:44 Follow up: Response: No adverse reaction cp4 01:56 Drug: [place] PO 10 mg-325 mg 1 tabs PO once Route: PO; cp4 01:56 Follow up: Response: No adverse reaction cp4 Disposition Summary: 12/09/24 01:42 Discharge Ordered Notes: Location: Home sp4 Problem: new sp4 Symptoms: have improved sp4 Condition: Stable sp4 Diagnosis - Acute Influenza A sp4 - Acute viral illness, acute viral bronchitis sp4 Followup: sp4 - With: Private Physician - When: 7 - 10 days - Reason: Recheck today's complaints Discharge Instructions: - Discharge Summary Sheet sp4 - Influenza, Adult sp4 Forms: - Patient Portal Instructions sp4 Prescriptions: - dextromethorphan-guaifenesin 20-400 mg Oral tablet - take 1 tablet ORAL route every 4 hours PRN cough; 40 tablet; Refills: 0, sp4 Product Selection Permitted - Ibuprofen 800 mg Oral Tablet - take 1 tablet ORAL route every 8 hours As needed take with food; 30 tablet; sp4 Refills: 0, Product Selection Permitted - promethazine 25 mg Oral tablet - take 1 tablet ORAL route every 6 hours As needed PRN nausea; 30 tablet; sp4 Refills: 0, Product Selection Permitted - Tamiflu 75 mg Oral capsule - take 1 tablet ORAL route every 12 hours for 5 days; 10 tablet; Refills: 0, sp4 Product Selection Permitted Signatures: Dispatcher [employer] Arlet Christianson RN RN ha1 Antoine Hansen MD MD sp4 Janna Singleton 4
[2024-12-09] MEDS ORDERED: HYDROCODONE/APAP 10/325 TAB ONE (01:52)
[2024-12-09 02:02] VITALS: TEMP 100
[2024-12-09 02:03] VITALS: BP 137/80; O2SAT 100
== END 2024-12-09 01:58 | disposition home or self-care (01) ==
LOC: ER 23:25
DX: J10.1 Influenza due to other identified influenza virus with other respiratory manifestations (principal)
CPT/HCPCS: 81001; 81025; 87804; 99284; Q0169

== ENCOUNTER 2025-01-06 16:56 | Emergency (ER) | payer SELFPAY ==
--- OUTSIDE RECORDS SUMMARY | 2025-01-06 17:00 | XMS REPORT | Continuity of Care Document ---
Author Name Unknown Address [address] [facility] [address]. [address] [place] [address] [facility] Address [address] [facility]. [address] [place] [address] Care Team Providers Care Clay Miller Name Role Phone Christ Flores Primary Care Physician [phone] Physician, No Primary or Family Admitting Clinic fay Unavailable Payers Payer Name Policy Type Policy Number Effective Date Expirati on Date Source Allergies, Adverse Reactions, Alerts Allergy Name Allergy Type Status Severity Reaction(s) Onset Date Inactive Date Treating Clinician Comments Source No Known Allergie s DA Active U 12-04 00:00: 00 [facility] No Known Allergie s DA Active U 12-04 00:00: 00 [facility] Medications Ordered Medication Name Filled Medication Name Start Date Stop Date Current Medication? Ordering Clinician Indication Dosage Frequency Signature (SIG) Comments Components Source phentermine 37.5 mg tablet - 00:00: 00 Yes 1mg Rod Carballo cetirizine 10 mg tablet - 00:00: 00 Yes 1mg Rod Carballo trazodone 50 mg tablet - 00:00: 00 Yes 1mg Rod Carballo benzonatate 200 mg capsule - 00:00: 00 Yes 1mg Roderma Carballo TAKE 5 ML EVERY 4-6 HOURS, MAY INCREASE TO 10ML AT NIGHT TIME NEEDED. 12-09 00:00: 00 02-06 00:00 :00 No [id number] Rod Carballo TAKE 2 CAPSULES EVERY 8 HOURS NEEDED. 12-09 00:00: 00 02-06 00:00 :00 No 100 Rod Carballo TAKE 5 ML EVERY 4-6 HOURS, MAY INCREASE TO 10ML AT NIGHT TIME NEEDED. 12-06 00:00: 00 02-06 00:00 :00 No [id number] Rod Carballo INHALE 1-2 PUFFS EVERY 4-6 HOURS NEEDED AND DIRECTED. 12-06 00:00: 00 02-06 00:00 :00 No [id number] Rod Carballo TAKE 2 TABLETS BY MOUTH EVERY 8 HOURS NEEDED FOR PAIN 02-03 00:00: 00 Yes Rod Carballo TAKE 1 TABLET BY MOUTH THREE TIMES A DAY 01-08 00:00: 00 Yes Rod Carballo Vital Signs Vital Name Observation Time Observation Value Comments S ource BP Systolic 2025-01-02 17:19:00 114 mm[Hg] Step hen F Haris BP Diastolic 2025-01-02 17:19:00 84 mm[Hg] Brett phen F Haris Weight Measured 2025-01-02 17:19:00 190.40 pounds Rod Carballo Height Measured 2025-01-02 17:19:00 59.00 inches Rod Pato Carballo Body Temperature 2025-01-02 17:19:00 98.10 degrees Rod Pato Carballo Heart Rate 2025-01-02 17:19:00 94.00 /min Yelitza en F Haris Respiratory Rate 2025-01-02 17:19:00 18.00 /min Rod Pato Carballo BP Systolic 2024-12-26 15:30:00 106 mm[Hg] Step hen F Haris BP Diastolic 2024-12-26 15:30:00 73 mm[Hg] Brett phen F Haris Weight Measured 2024-12-26 15:30:00 198.00 pounds Rod Pato Carballo Height Measured 2024-12-26 15:30:00 59.00 inches Rdo Pato Carballo Body Temperature 2024-12-26 15:30:00 98.60 degrees Rod F Haris Heart Rate 2024-12-26 15:30:00 100.00 /min Step hen F Haris Respiratory Rate 2024-12-26 15:30:00 18.00 /min Rod F Haris Height Measured 2024-12-24 13:26:00 59.00 inches Rod F Haris Body Temperature 2024-12-24 13:26:00 98.00 degrees Rod F Haris Heart Rate 2024-12-24 13:26:00 109.00 /min Step hen F Haris Respiratory Rate 2024-12-24 13:26:00 18.00 /min Rod F Haris BP Systolic 2024-12-24 13:26:00 109 mm[Hg] Step hen F Haris BP Diastolic 2024-12-24 13:26:00 69 mm[Hg] Brett phen F Haris Weight Measured 2024-12-24 13:26:00 194.80 pounds Rod F Haris BP Systolic 2023-11-08 13:45:00 115 mm[Hg] Step hen F Haris BP Diastolic 2023-11-08 13:45:00 87 mm[Hg] Brett phen F Haris Weight Measured 2023-11-08 13:45:00 142.40 pounds Rod F Haris Height Measured 2023-11-08 13:45:00 59.00 inches Rod F Haris Body Temperature 2023-11-08 13:45:00 97.40 degrees Rod F Haris Heart Rate 2023-11-08 13:45:00 90.00 /min Yelitza en F Haris Respiratory Rate 2023-11-08 13:45:00 Rod F Haris BP Systolic 2023-11-08 13:17:00 115 mm[Hg] Step hen F Haris BP Diastolic 2023-11-08 13:17:00 87 mm[Hg] Brett phen F Haris Weight Measured 2023-11-08 13:17:00 142.40 pounds Rod F Haris Height Measured 2023-11-08 13:17:00 59.00 inches Rod F Haris Body Temperature 2023-11-08 13:17:00 97.40 degrees Rod F Haris Heart Rate 2023-11-08 13:17:00 90.00 /min Yelitza en F Haris Respiratory Rate 2023-11-08 13:17:00 Rod F Haris Encounters Start Date/Time End Date/Time Encounter Type Admission Type Attending [facility] Care Department Encounter ID Source 2019-12-16 15:50:00 Inpatient [facility] [id number] 2025-01-04 15:38:22 2025-01-04 15:38:22 Outpatient SFA SFA [id number] Rod Carballo 2025-01-03 13:42:52 2025-01-03 13:42:52 Outpatient SFA SFA [id number] Rod Carballo 2025-01-02 17:12:13 2025-01-02 17:12:13 Outpatient SFA SFA [id number] Rod Carballo 2025-01-02 00:00:00 2025-01-02 00:00:00 Outpatient Visit SFA [id number] Rod Carballo 2024-12-26 15:24:27 2024-12-26 15:24:27 Outpatient SFA SFA [id number] Rod Carballo 2024-12-26 00:00:00 2024-12-26 00:00:00 Outpatient Visit SFA [id number] Rod Carballo 2024-12-24 13:19:21 2024-12-24 13:19:21 Outpatient SFA SFA [id number] Rod Carballo 2024-12-24 00:00:00 2024-12-24 00:00:00 Outpatient Visit SFA [id number] Rod Carballo 2023-11-08 14:32:37 2023-11-08 14:32:37 Outpatient SFA SFA [id number] Rod Carballo Results Test Description Test Time Test Comments Results Result Co mments Source LIPID [id number] 05:22:04* Test Item Value Reference Range Interpretation Comme nts CHOLESTEROL (test code = 2210) 184 MG/DL <200 TRIGLYCERIDES (test code = 2232) 118 MG/DL <150 HDL CHOLESTEROL (test code = 2220) 38 MG/DL >39 L CALC LDL CHOL (test code = 2237) 123 MG/DL <100 H NOTE: CALCULATED LDL IS BASED ON SHAHLA-RICHARDS METHOD WHICHINCLUDES ADJUSTABLE TRIGLYCERIDE:VLDL CHOLESTEROL RATIO.THIS FACTOR VARIES BY MEASURED TRIGLYCERIDE AND NON-HDLCHOLESTEROL CONCENTRATIONS WITH INCREASED CALCULATED LDL SEENIN HIGHER TRIGLYCERIDE OR LOWER NON-HDL SPECIMENS. FOR MOREINFORMATION, SEE CLIENT ANNOUNCEMENT AT [email or web address] /CalcLDL-C RISK RATIO LDL/HDL (test code = 2238) 3.24 RATIO <3.22 H UNLESS OTHERW ISE INDICATED, ALL TESTING PERFORMED AT [facility] [address] [place] [address] SHAFTING CLEANER: Brenton SERNAIA NUMBER [id number] [facility] [place]. [id number] COMPREHENSIVE METABOLIC [id number] 00:00:00* Test Item Value Reference Range Interpretation Comme nts GLUCOSE (test code = 2217) 99 MG/DL BUN (test code = 2208) 11 MG/DL CREATININE (test code = 2214) 0.64 MG/DL eGFR (2020 CKD-EPI) (test code = 18330) 118 ML/MIN/1.73 CALC BUN/CREAT (test code = 2235) 17 RATIO SODIUM (test code = 2231) 140 MEQ/L POTASSIUM (test code = 2228) 4.3 MEQ/L CHLORIDE (test code = 2215) 105 MEQ/L CARBON DIOXIDE (test code = 2206) 25 MEQ/L CALCIUM (test code = 2209) 9.2 MG/DL PROTEIN, TOTAL (test code = 2229) 6.6 G/DL ALBUMIN (test code = 2201) 4.3 G/DL CALC GLOBULIN (test code = 2240) 2.3 G/DL CALC A/G RATIO (test code = 2234) 1.9 RATIO BILIRUBIN, TOTAL (test code = 2207) 0.5 MG/DL ALKALINE PHOSPHATASE (test code = 2204) 120 U/L AST (test code = 2218) 33 U/L ALT (test code = 2219) 47 U/L Rod CarballoLIPID [id number] 00:00:00* Test Item Value Reference Range Interpretation Comme nts CHOLESTEROL (test code = 2210) 184 MG/DL TRIGLYCERIDES (test code = 2232) 118 MG/DL HDL CHOLESTEROL (test code = 2220) 38 MG/DL CALC LDL CHOL (test code = 2237) 123 MG/DL RISK RATIO LDL/HDL (test cod e = 2238) 3.24 RATIO Rod Henderson, THIRD [id number] 05:30:20* Test Item Value Reference Range Interpretation Comme nts TSH, THIRD GENERATION (test code = 2821) 1.830 UIU/ML 0.400-4.100 UNLESS OTHERWISE INDICATED, ALL TESTING PERFORMED AT [facility] [address] [place] [address] SHAFTING CLEANER: VICKY ELMORE M.D. [place] NUMBER [id number] [facility]. [id number] LIPID [id number] 05:11:52* Test Item Value Reference Range Interpretation Comme nts CHOLESTEROL (test code = 2210) 179 MG/DL <200 TRIGLYCERIDES (test code = 2232) 87 MG/DL <150 HDL CHOLESTEROL (test code = 2220) 40 MG/DL >39 CALC LDL CHOL (test code = 2237) 120 MG/DL <100 H NOTE: CALCULATED LDL IS BASED ON SHAHLA-RICHARDS METHOD WHICHINCLUDES ADJUSTABLE TRIGLYCERIDE:VLDL CHOLESTEROL RATIO.THIS FACTOR VARIES BY MEASURED TRIGLYCERIDE AND NON-HDLCHOLESTEROL CONCENTRATIONS WITH INCREASED CALCULATED LDL SEENIN HIGHER TRIGLYCERIDE OR LOWER NON-HDL SPECIMENS. FOR MOREINFORMATION, SEE CLIENT ANNOUNCEMENT AT [email or web address] /CalcLDL-C RISK RATIO LDL/HDL (test code = 2238) 3.00 RATIO <3.22 COMPREHENSIVE METABOLIC [id number] 05:11:52* Test Item Value Reference Range Interpretation Comme nts GLUCOSE (test code = 2217) 91 MG/DL 70-99 BUN (test code = 2208) 11 MG/DL 6-20 CREATININE (test code = 2214) 0.58 MG/DL 0.60-1.30 L eGFR (2020 CKD-EPI) (test code = 06337) 122 ML/MIN/1.73 >60 CALC BUN/CREAT (test code = 2235) 19 RATIO 6-28 SODIUM (test code = 223) 141 MEQ/L 133-146 POTASSIUM (test code = 2228) 5.1 MEQ/L 3.5-5.4 CHLORIDE (test code = 2214) 105 MEQ/L 95-107 CARBON DIOXIDE (test code = 2205) 24 MEQ/L 19-31 CALCIUM (test code = 2208) 9.4 MG/DL 8.5-10.5 PROTEIN, TOTAL (test code = 2228) 6.7 G/DL 6.1-8.3 ALBUMIN (test code = 2200) 4.4 G/DL 3.5-5.2 CALC GLOBULIN (test code = 2239) 2.3 G/DL 1.9-3.7 CALC A/G RATIO (test code = 2233) 1.9 RATIO 1.0-2.6 BILIRUBIN, TOTAL (test code = 2206) 0.3 MG/DL <=1.2 ALKALINE PHOSPHATASE (test code = 2203) 106 U/L 40-114 AST (test code = 2217) 17 U/L 9-40 ALT (test code = 2218) 21 U/L 5-40 CBC W/AUTO DIFF WITH [id number] 01:46:53* Test Item Value Reference Range Interpretation [...] 0.00-0.10 ABS NUCLEATED RBCS (test code = 31055) 0.00 K/UL 0.00-0.11 CBC W/AUTO [id number] 00:00:00* Test Item Value Reference Range Interpretation Comme nts WBC (test code = 1001) 5.5 K/UL RBC (test code = 1002) 4.80 M/UL HEMOGLOBIN (test code = 1003) 14.2 G/DL HEMATOCRIT (test code = 1004) 43.0 % MCV (test code = 1005) 89.6 fL MCH (test code = 1006) 29.6 PG MCHC (test code = 1007) 33.0 G/DL RDW (test code = 1038) 12.4 % NEUTROPHILS (test code = 1008) 49.2 % LYMPHOCYTES (test code = 1010) 39.1 % MONOCYTES (test code = 1011) 8.1 % EOSINOPHILS (test code = 1012) 2.5 % BASOPHILS (test code = 1013) 0.7 % IMMATURE GRANULOCYTES (test code = 1036) 0.4 % NUCLEATED RBCS (test code = 1065) 0.0 /100WBC'S PLATELET COUNT (test code = 1015) 293 K/UL ABSOLUTE NEUTROPHILS (test c ode = 1066) 2.72 K/UL ABSOLUTE LYMPHOCYTES (test c ode = 1067) 2.16 K/UL ABSOLUTE MONOCYTES (test cod e = 1068) 0.45 K/UL ABSOLUTE EOSINOPHILS (test c ode = 1040) 0.14 K/UL ABSOLUTE BASOPHILS (test cod e = 1069) 0.04 K/UL ABS IMMATURE GRANULOCYTES (t est code = 1020) 0.02 K/UL ABS NUCLEATED RBCS (test cod e = 33774) 0.00 K/UL Rod CarballoLIPID [id number] 00:00:00* Test Item Value Reference Range Interpretation Comme nts CHOLESTEROL (test code = 2210) 179 MG/DL TRIGLYCERIDES (test code = 2232) 87 MG/DL HDL CHOLESTEROL (test code = 2220) 40 MG/DL CALC LDL CHOL (test code = 2237) 120 MG/DL RISK RATIO LDL/HDL (test cod e = 2238) 3.00 RATIO Rod CarballoCOMPREHENSIVE METABOLIC [id number] 00:00:00* Test Item Value Reference Range Interpretation Comme nts GLUCOSE (test code = 2217) 91 MG/DL BUN (test code = 2208) 11 MG/DL CREATININE (test code = 2214) 0.58 MG/DL eGFR (2020 CKD-EPI) (test code = 91100) 122 ML/MIN/1.73 CALC BUN/CREAT (test code = 2235) 19 RATIO SODIUM (test code = 2231) 141 MEQ/L POTASSIUM (test code = 2228) 5.1 MEQ/L CHLORIDE (test code = 2215) 105 MEQ/L CARBON DIOXIDE (test code = 2206) 24 MEQ/L CALCIUM (test code = 2209) 9.4 MG/DL PROTEIN, TOTAL (test code = 2229) 6.7 G/DL ALBUMIN (test code = 2201) 4.4 G/DL CALC GLOBULIN (test code = 2240) 2.3 G/DL CALC A/G RATIO (test code = 2234) 1.9 RATIO BILIRUBIN, TOTAL (test code = 2207) 0.3 MG/DL ALKALINE PHOSPHATASE (test code = 2204) 106 U/L AST (test code = 2218) 17 U/L ALT (test code = 2219) 21 U/L Rod CarballoTSH, THIRD [id number] 00:00:00* Test Item Value Reference Range Interpretation Comme nts TSH, THIRD GENERATION (test code = 2821) 1.830 UIU/ML Rod CarballoCBC W/AUTO [id number] 00:00:00* Test Item Value Reference Range Interpretation Comme nts WBC (test code = 1001) 5.5 K/UL RBC (test code = 1002) 4.80 M/UL HEMOGLOBIN (test code = 1003) 14.2 G/DL HEMATOCRIT (test code = 1004) 43.0 % MCV (test code = 1005) 89.6 fL MCH (test code = 1006) 29.6 PG MCHC (test code = 1007) 33.0 G/DL RDW (test code = 1038) 12.4 % NEUTROPHILS (test code = 1008) 49.2 % LYMPHOCYTES (test code = 1010) 39.1 % MONOCYTES (test code = 1011) 8.1 % EOSINOPHILS (test code = 1012) 2.5 % BASOPHILS (test code = 1013) 0.7 % IMMATURE GRANULOCYTES (test code = 1036) 0.4 % NUCLEATED RBCS (test code = 1065) 0.0 /100WBC'S PLATELET COUNT (test code = 1015) 293 K/UL ABSOLUTE NEUTROPHILS (test c ode = 1066) 2.72 K/UL ABSOLUTE LYMPHOCYTES (test c ode = 1067) 2.16 K/UL ABSOLUTE MONOCYTES (test cod e = 1068) 0.45 K/UL ABSOLUTE EOSINOPHILS (test c ode = 1040) 0.14 K/UL ABSOLUTE BASOPHILS (test cod e = 1069) 0.04 K/UL ABS IMMATURE GRANULOCYTES (t est code = 1020) 0.02 K/UL ABS NUCLEATED RBCS (test cod e = 33439) 0.00 K/UL Rod CarballoLIPID [id number] 00:00:00* Test Item Value Reference Range Interpretation Comme nts CHOLESTEROL (test code = 2210) 179 MG/DL TRIGLYCERIDES (test code = 2232) 87 MG/DL HDL CHOLESTEROL (test code = 2220) 40 MG/DL CALC LDL CHOL (test code = 2237) 120 MG/DL RISK RATIO LDL/HDL (test cod e = 2238) 3.00 RATIO Rod CarballoCOMPREHENSIVE METABOLIC [id number] 00:00:00* Test Item Value Reference Range Interpretation Comme nts GLUCOSE (test code = 2217) 91 MG/DL BUN (test code = 2208) 11 MG/DL CREATININE (test code = 2214) 0.58 MG/DL eGFR (2020 CKD-EPI) (test code = 42887) 122 ML/MIN/1.73 CALC BUN/CREAT (test code = 2235) 19 RATIO SODIUM (test code = 2231) 141 MEQ/L POTASSIUM (test code = 2228) 5.1 MEQ/L CHLORIDE (test code = 2215) 105 MEQ/L CARBON DIOXIDE (test code = 2206) 24 MEQ/L CALCIUM (test code = 2209) 9.4 MG/DL PROTEIN, TOTAL (test code = 2229) 6.7 G/DL ALBUMIN (test code = 2201) 4.4 G/DL CALC GLOBULIN (test code = 2240) 2.3 G/DL CALC A/G RATIO (test code = 2234) 1.9 RATIO BILIRUBIN, TOTAL (test code = 2207) 0.3 MG/DL ALKALINE PHOSPHATASE (test code = 220) 106 U/L AST (test code = 2218) 17 U/L ALT (test code = 2219) 21 U/L Rod Henderson, THIRD [id number] 00:00:00* Test Item Value Reference Range Interpretation Comme nts TSH, THIRD GENERATION (test code = 2821) 1.830 UIU/ML Rod CarballoCBC W/AUTO [id number] 00:00:00* Test Item Value Reference Range Interpretation Comme nts WBC (test code = 1001) 5.5 K/UL RBC (test code = 1002) 4.80 M/UL HEMOGLOBIN (test code = 1003) 14.2 G/DL HEMATOCRIT (test code = 1004) 43.0 % MCV (test code = 1005) 89.6 fL MCH (test code = 1006) 29.6 PG MCHC (test code = 1007) 33.0 G/DL RDW (test code = 1038) 12.4 % NEUTROPHILS (test code = 1008) 49.2 % LYMPHOCYTES (test code = 1010) 39.1 % MONOCYTES (test code = 1011) 8.1 % EOSINOPHILS (test code = 1012) 2.5 % BASOPHILS (test code = 1013) 0.7 % IMMATURE GRANULOCYTES (test code = 1036) 0.4 % NUCLEATED RBCS (test code = 1065) 0.0 /100WBC'S PLATELET COUNT (test code = 1015) 293 K/UL ABSOLUTE NEUTROPHILS (test c ode = 1066) 2.72 K/UL ABSOLUTE LYMPHOCYTES (test c ode = 1067) 2.16 K/UL ABSOLUTE MONOCYTES (test cod e = 1068) 0.45 K/UL ABSOLUTE EOSINOPHILS (test c ode = 1040) 0.14 K/UL ABSOLUTE BASOPHILS (test cod e = 1069) 0.04 K/UL ABS IMMATURE GRANULOCYTES (t est code = 1020) 0.02 K/UL ABS NUCLEATED RBCS (test cod e = 41207) 0.00 K/UL Rod CarballoLIPID [id number] 00:00:00* Test Item Value Reference Range Interpretation Comme nts CHOLESTEROL (test code = 2210) 179 MG/DL TRIGLYCERIDES (test code = 2232) 87 MG/DL HDL CHOLESTEROL (test code = 2220) 40 MG/DL CALC LDL CHOL (test code = 2237) 120 MG/DL RISK RATIO LDL/HDL (test cod e = 2238) 3.00 RATIO Rod CarballoCOMPREHENSIVE METABOLIC [id number] 00:00:00* Test Item Value Reference Range Interpretation Comme nts GLUCOSE (test code = 2217) 91 MG/DL BUN (test code = 2208) 11 MG/DL CREATININE (test code = 2214) 0.58 MG/DL eGFR (2020 CKD-EPI) (test code = 98776) 122 ML/MIN/1.73 CALC BUN/CREAT (test code = 2235) 19 RATIO SODIUM (test code = 2231) 141 MEQ/L POTASSIUM (test code = 2228) 5.1 MEQ/L CHLORIDE (test code = 2215) 105 MEQ/L CARBON DIOXIDE (test code = 2206) 24 MEQ/L CALCIUM (test code = 2209) 9.4 MG/DL PROTEIN, TOTAL (test code = 2229) 6.7 G/DL ALBUMIN (test code = 2201) 4.4 G/DL CALC GLOBULIN (test code = 2240) 2.3 G/DL CALC A/G RATIO (test code = 2234) 1.9 RATIO BILIRUBIN, TOTAL (test code = 2207) 0.3 MG/DL ALKALINE PHOSPHATASE (test code = 2204) 106 U/L AST (test code = 2218) 17 U/L ALT (test code = 2219) 21 U/L Rod Henderson, THIRD [id number] 00:00:00* Test Item Value Reference Range Interpretation Comme nts TSH, THIRD GENERATION (test code = 2821) 1.830 UIU/ML Rod Carballo- XR CHEST 1 [id number] 16:45:00FAX: Veena Ahumada MD [phone] [place]: St: REG Name: ARACELIS MCCLENDON Meherrin FSED : 1990 Age/S: 29/F Unit #: [id number] Loc: [place], [place] Phys: Veena Ahumada MD Acct: [id number] Dis Date: Status: REG ER PHONE #: Exam Date: 12/16/2019 1630 FAX #: Reason: cough EXAMS: CPT CODE: [id number] XR CHEST 1 V [id number] Portable chest performed December 16, 2019 1624 hours. COMPARISON: June 07, 2019.CLINICAL HISTORY: cough. DISCUSSION: Single portable chest is submitted. Cardiomediastinal silhouette is normal. Lungs are clear. No acute osseous abnormality. IMPRESSION: Normal one view chest x-ray. at 2063 Reported and signed by: Abbi Van M.D. CC: Veena Ahumada MD Technologist: RT Carina(R) Trnscrd Date/Time/By: 12/16/2019 (577) : By: Latrice Orig Print D/T: S: 12/16/2019 (0316) PAGE 1 Signed ReportINFLUENZA A B [id number] 16:17:00* Test Item Value Reference Range Interpretation Comme nts INFLUENZA A POC (test code = INFLAAG) NEGATIVE NEGATIVE INFLUENZA B POC (test code = INFLBAG) POSITIVE NEGATIVE Performed by cer tified foot drill operator at [facility] AG STREP GROUP A (THROAT)2019-12-16 16:12:00* Test Item Value Reference Range Interpretation Comme nts AG STREP GROUP A (THROAT) (test code = STREPA) NEGATIVE Negative Performed by cer tified foot drill operator at [facility] BASIC METABOLIC [id number] 20:53:00* Test Item Value Reference Range Interpretation [...] CA) 8.4 mg/dl 8.0-10.5 N BASIC METABOLIC [id number] 20:46:00* Test Item Value Reference Range Interpretation [...] CA) 8.4 mg/dl 8.0-10.5 N TROPONIN I [id number] 20:45:00* Test Item Value Reference Range Interpretation [...] of temporal changes in troponin levelscharacteristic of [place]. CBC W/AUTO [id number] 20:45:00* Test Item Value Reference Range Interpretation [...] K/mm3 0.0-0.2 N - XR CHEST 1 [id number] 20:26:00FAX: Jesús Hernadez DO [phone] [place]: St: PRE Name: ARACELIS MCCLENDON [facility] : 1990 Age/S: 28/F [address] [facility] Unit [facility]: [id number] Loc: [place], [place] Phys: Jesú[place] [id number] Acct: [id number] Dis Date: Status: PRE ER PHONE #: [phone] Exam Date: 06/07/20192022 FAX #: [phone] Reason: SOB EXAMS: CPT CODE: [id number] XR CHEST 1 V 08207 CHEST X-RAY 1 VIEW DictationLocation: N13 CLINICAL HISTORY: Shortness of breath Technique: A single frontal view of the chest was obtained. FINDINGS: Bony structures are unremarkable. The aortic, hilar and cardiac outlines are normal. The lungs are clear of infiltrates or suspicious nodules. No pleural effusion or pneumothorax. IMPRESSION: Normal chest x-ray. at 2025 Reported and signed by: Claudia Mcclendon M.D. CC: Jesús Hernadez DO Technologist: RITA GOMEZ Trnflrd Date/Time/By: 06/07/2019 (2025) : By: Saad PAGE 1 Signed Report FAX: Jesús Hernadez DO [phone] [place]: St: PRE Name: ARACELIS MCCLENDON [facility] : 1990 Age/S: 28/F [address] [facility] Unit #: [id number] Loc: [place] Phys: [place] [id number] Acct: [id number] DisDate: Status: PRE ER PHONE #: [phone] Exam Date: 06/07/20192022 FAX #: [phone] Reason: SOB EXAMS: CPT CODE: [id number] XR CHEST 1 V 43930 (Continued) Orig Print D/T: S: 06/07/2019 (2028) PAGE 2 Signed Report Notes Date/Time Note Provider Source [facility]2025-02-19 00:00:00 [facility]2025-02-17 00:00:00 [facility]2020-02-09 16:08:00 [facility] ([facility]) EMERGENCY PROVIDER REPORT REPORT#:[id number] REPORT STATUS: Signed DATE:12/16/19 TIME: 1608 PATIENT: ARACELIS MCCLENDON UNIT #: [id number] ROOM/BED: AGE: 29 SEX: F PCP PHYS: No Primary or Family Physician SERVICE AUTHOR: Veena Ahumada MD * ALL edits or amendments must be made on the electronic/computer document * HPI-URI/Cough/Cold General Confirmed Patient Yes Initial Greet Date/Time 12/16/19 1550 Presentation Chief Complaint Cough, non-productive, Earache R Free Text HPI Notes Free Text HPI Notes 29 yo female with no significant pmh presents for cough and sore throat for past 2 days. Fever up to 100.5. She noticed red spots under her tongue. Denies n/v/d. She did have recent dental procedure and is currently on amoxcillin. She states that her son just completed a URI in the past few days. Review of Systems Focused Review of Systems Constitutional Reports: Fatigue, Fever. Eyes Denies: Blurred bilat. Ears/Nose/Throat Reports: Ear ringing bilat (for a few years). Respiratory Reports: Cough, non-productive. GI Denies: Abdominal pain, Nausea, Vomiting. Skin Denies: Abrasion. Neurologic Denies: Change LOC, Confusion. Additional Review of Systems Cardiovascular Denies: Chest pain. Female Denies: Dysuria. Musculoskeletal Denies: Extremity pain, Extremity swelling. Past Medical History - Adult Stated Complaint cough congestion sore throat Allergies Coded Allergies: No Known Allergies (12/04/18) Home Medications Reported Medications AMOXICILLIN (AMOXIL) 250 MG PO Q8H Pt reports no significant: Past medical history Additional Surgical History recent dental procedure Smoking status for patients 13 years old or older: Never Smoker Physical Exam Vital Signs Vital Signs First Documented: Result Date Time Pulse Ox 98 / 1551 B/P 110/70 / 1551 B/P Mean 83 / 1551 Temp 37.0 02/ 1551 Pulse 110 02/ 1551 Resp 20 12/16 1551 Last Documented: Result Date Time Pulse Ox 98 02/ 1551 B/P 110/70 12/16 1551 B/P Mean 83 / 1551 Temp 37.0 02/ 1551 Pulse 110 02/ 1551 Resp 20 12/16 1551 Review of Vital Signs Reviewed Focused PE General/Const General/Const Awake, Alert, No acute distress, Well appearing, Well developed , Well hydrated, Well nourished, Cooperative, Not toxic appearing Eyes Eyes Atraumatic, PERRL, EOMI, No nystagmus Ears/Nose/Throat Ears/Nose/Throat Atraumatic, Airway patent, Mucous membranes moist Text/Dict Notes pharyngeal erythema, red spots on tongue MS Neck Neck Atraumatic, Supple, No meningismus, Full range of motion Resp/Chest Respiratory/Chest Atraumatic, Breath sounds NL, Breath sounds = bilat, No respiratory distress, No rales, No rhonchi, No retractions Cardiovascular Cardiovascular Heart rate NL, Regular rhythm, Heart sounds NL Abdomen/GI Abdomen/GI Atraumatic, Soft, Non-tender, McBurney's non-tender, No guarding Skin Skin Atraumatic, Color NL, No rash, Warm, Dry Neurologic Neurologic Oriented X3, Speech NL Interpretation Diagnostics Lab Results Interpretation Results Laboratory Tests: 12/16 12/16 1605 1604 Serology POC Influenza A Ag (NEGATIVE) NEGATIVE POC Influenza B Ag (NEGATIVE) POSITIVE Group A Strep Screen (Negative) NEGATIVE Recent Impressions: RADIOLOGY - XR CHEST 1 V 12/16 1630 Report Impression - Status: SIGNED Entered: 12/16/2019 1648 IMPRESSION: Normal one view chest x-ray. Impression By: Latrice Van M.D. Lab Imaging Statement Laboratory radiographic studies reviewed and considered in the medical decision-making. Point of Care Testing Pulse Oximetry Pulse Ox % 98 On: Room air Interpretation Interpreted by ok, Pulse oximetry normal Time 1551 Re-Evaluation MDM Re-Evaluation/Progress URI/Flu Adult MDM Note The patient is now resting comfortably, is alert and in no distress. The patient has a normal mental status and is neurologically intact. The patient appears well and is able to tolerate food or fluid by mouth, and there is no significant dehydration. There is no respiratory distress and no signs of systemic toxicity. The history, exam, diagnostic testing (if any) and current condition do not demonstrate an infectious process such as meningitis, severe pneumonia, retropharyngeal abscess, epiglottitis, sepsis or other serious bacterial infection requiring further testing, treatment, consultation, or admission at this time. The vital signs have been stable. The patient's condition is stable and appropriate for discharge. The patient will pursue further outpatient evaluation with the primary care physician or other designated or consulting physician as indicated in the discharge instructions. ED Course Medication(s) Ordered Medication(s) Ordered: Central Nervous System Agents Sig/Amarilys Start time Last Medication Dose Route Stop Time Status Admin Acetaminophen 650 MG X1ED STA 12/16 1552 DC 12/16 PO 12/16 1553 1608 Patient Discharge Departure Vital Signs/Condition Vital Signs First Documented: Result Date Time Pulse Ox 98 12/16 1551 B/P 110/70 12/16 1551 B/P Mean 83 12/16 1551 Temp 37.0 12/16 1551 Pulse 110 12/16 1551 Resp 20 12/16 1551 Last Documented: Result Date Time Pulse Ox 98 12/16 1551 B/P 110/70 12/16 1551 B/P Mean 83 12/16 1551 Temp 37.0 12/16 1551 Pulse 110 12/16 1551 Resp 20 12/16 1551 All vital signs available at the time of this entry have been reviewed. Condition Stable Clinical Impression Clinical Impression Primary Impression: Flu Disposition Decision Discharge )( Discharged to Home Yes )( Time 1644 )( Date 12/16/19 Discharge/Care Plan Counseled Regarding Diagnosis, Lab results, Imaging studies, Prescriptions, Need for follow-up, When to return to ED Prescriptions tamiflu Discharge Note I have spoken with the patient and/or caregivers. I have explained the patient's condition, diagnoses and treatment plan based on the information available to me at this time. I have answered the patient's and/or caregiver's questions and addressed any concerns. The patient and/or caregivers have as good an understanding of the patient's diagnosis, condition and treatment plan as can be expected at this point. The vital signs have been stable. The patient's condition is stable and appropriate for discharge from the emergency department. The patient will pursue further outpatient evaluation with the primary care physician or other designated or consulting physician as outlined in the discharge instructions. The patient and/or caregivers are agreeable to this plan of care and follow-up instructions have been explained in detail. The patient and/or caregivers have received these instructions in written format and have expressed an understanding of the discharge instructions. The patient and/or caregivers are aware that any significant change in condition or worsening of symptoms should prompt an immediate return to this or the closest emergency department or a call to 1. at 1810 RPT #:[id number] END OF [id number] 20:16:00 [facility] ([facility]) EMERGENCY PROVIDER REPORT REPORT#:[id number] REPORT STATUS: Signed DATE:06/07/19 TIME: 2015 PATIENT: ARACELIS MCCLENDON UNIT #: [id number] ROOM/BED: AGE: 28 SEX: F PCP PHYS: No Primary or Family Physician SERVICE AUTHOR: Jesús Hernadez DO * ALL edits or amendments must be made on the electronic/computer document * HPI-Palpit/Arrhyth General Confirmed Patient Yes Initial Greet Date/Time 06/07/191999 Presentation Chief Complaint Palpitations Hx Obtained From Patient Onset Occurred Chronic (1 year) Symptom Duration Since onset Progression since Onset Constant Severity: Onset Mild Severity: Current Moderate Associated with Denies: Chest pain. Associated Other Pt denies other symptoms Exacerbated by Nothing Relieved by Nothing Context Established Acting Instructor No Free Text HPI Notes Free Text HPI Notes 28 y/o female with no known PMHx presents to the ED c/o palpitations, described as "hearing my heartbeat in my ear", for the past one year. Pt reports associated sx of dizziness, weakness, SOB and nausea. Pt states she has been evaluated previously for same sx and was told her results were normal. Pt reports sx have been ongoing constantly for one year, but worsened today, so she sought help in the ED. Denies CP or abd pain. FHx of CAD ([place]) at 59 y/o. Portions of this section were scribed by Elenita Marte on 06/07/19 at 2114 Risk-Palpit/Arrhyth Risk Stratification )( CHADs2-VASc Score )( CHADs2-VASc Score Response Value CHF: No 0 HTN: No 0 age greater than 75 years: No 0 age between 65 and 74 yrs: No 0 hx stroke, TIA, or TE: No 0 vascular disease: No 0 diabetes mellitus: No 0 female: Yes 1 Total 1 CHADs2-VASc Interpretation 1, rec OAC/antiplatelet Portions of this section were scribed by Elenita Marte on 06/07/19 at 2030 Review of Systems ROS Statements All systems rev neg except as marked. Focused Review of Systems Constitutional Denies: Chills, Fever, Lethargy. Ears/Nose/Throat Denies: Earache bilat, Nasal congestion, Sore throat. Respiratory Reports: Shortness of breath. Denies: Cough, non-productive, Cough, productive. Cardiovascular Reports: Palpitations. Denies: Edema. GI Reports: Nausea. Denies: Abdominal pain, Diarrhea, Vomiting. Endocrine Denies: Polyuria, Weight loss. Skin Denies: Diaphoresis, Rash. Neurologic Reports: Dizziness, Generalized weakness. Denies: Change LOC, Focal weakness, Headache, Numbness, Slurred speech. Psychiatric Denies: Anxiety, Depression. Additional Review of Systems Musculoskeletal Denies: Extremity swelling, Joint swelling. Portions of this section were scribed by Elenita Marte on 06/07/19 at 2030 Past Medical History - Adult Stated Complaint FELLS HEART BEAT IN EAR AND DIZZY SPELLS Allergies Coded Allergies: No Known Allergies (12/04/18) Home Medications Reported Medications No Known Home Medications Review of Nursing Notes Rev avail, and agree Pt reports no significant: Past medical history, Past surgical history Smoking status for patients 13 years old or older: Never Smoker Portions of this section were scribed by Elenita Marte on 06/07/19 at 2030 Physical Exam Vital Signs Vital Signs First Documented: Result Date Time Pulse Ox 98 06/07 1955 B/P 115/76 06/07 1955 B/P Mean 89 06/07 1955 O2 Delivery Room air 06/07 1955 Temp 36.8 06/07 1955 Pulse 92 06/07 1955 Resp 17 06/07 1955 Last Documented: Result Date Time Pulse Ox 100 06/07 2119 B/P 115/76 06/07 1955 B/P Mean 89 06/07 1955 O2 Delivery Room air 06/07 1955 Temp 36.8 06/07 1955 Pulse 92 06/07 1955 Resp 17 06/07 1955 Review of Vital Signs Reviewed Focused PE General/Const General/Const Awake, Alert, Cooperative Eyes Eyes No periorbital swelling, Conjunctiva NL Ears/Nose/Throat Ears/Nose/Throat Airway patent, Mucous membranes moist MS Neck Neck Supple, No meningismus, Full range of motion Resp/Chest Respiratory/Chest Breath sounds NL, Breath sounds = bilat, No respiratory distress, No rales, No rhonchi, No wheezing Cardiovascular Cardiovascular Heart rate NL, Regular rhythm, Heart sounds NL Abdomen/GI Abdomen/GI Soft, Non-tender, No guarding, No distention MS Lower Extrem Lower Ext/Pelvis/MS Full range of motion, No swelling, Non-tender Skin Skin Color NL, Warm, Dry Neurologic Neurologic Oriented X3, Speech NL Portions of this section were scribed by Elenita Marte on 06/07/19 at 203 Interpretation Diagnostics Lab Results Interpretation Results Laboratory Tests 06/07/192028: [Embedded Image Not Available] Laboratory Tests: 06/07 Chemistry Sodium (134.0 - 147.0 mmol/l) 136 Potassium (3.6 - 5.2 mmol/L) 4.2 Chloride (98.0 - 107.0 mmol/l) 103 Carbon Dioxide (21.0 - 33.0 mmol/l) 27.6 Anion Gap (0 - 20) 9.6 BUN (7.0 - 18.0 mg/dl) 12 Creatinine (0.60 - 1.30 mg/dL) 0.59 L Est GFR ( Amer) (133 - 145 mL/min) 154 H Est GFR (Non-Af Amer) (110 - 120 mL/min) 128 H Glucose (70.0 - 110.0 mg/dl) 107 Calcium (8.0 - 10.5 mg/dl) 8.4 Rapid Troponin I (0.00 - 0.08) 0.01 Hematology WBC (4.5 - 11.0 K/mm3) 6.8 RBC (3.80 - 5.20 M/mm3) 4.32 Hgb (12.0 - 16.0 gm/dL) 13.4 Hct (36.0 - 48.0 %) 39.6 MCV (82.0 - 99.0 UM3) 91.7 MCH (25.5 - 32.5 UUG) 31.0 MCHC (29.0 - 35.5 gm/dL) 33.8 RDW (11.5 - 15.0 %) 13.4 Plt Count (150 - 400 K/mm3) 283 MPV (7.4 - 10.4 fl) 10.2 Neut % (Auto) (49.0 - 76.0 %) 66.5 Lymph % (Auto) (23.0 - 38.0 %) 26.5 [place] % (Auto) (1.0 - 10.0 %) 5.3 Eos % (Auto) (1.0 - 5.0 %) 1.0 Baso % (Auto) (0.0 - 1.0 %) 0.6 Neut # (Auto) (2.4 - 6.3 K/mm3) 4.5 Lymph # (Auto) (1.2 - 4.0 K/mm3) 1.8 [place] # (Auto) (0.0 - 0.6 K/mm3) 0.4 Eos # (Auto) (0.0 - 0.7 K/MM3) 0.1 Baso # (Auto) (0.0 - 0.2 K/mm3) 0.0 Immature Gran % (0.0 - 0.4 %) 0.1 Immature Gran # (0.00 - 0.07 x10 3/uL) 0.01 Recent Impressions: RADIOLOGY - XR CHEST 1 V 06/07 2023 Report Impression - Status: SIGNED Entered: 06/07/20192028 IMPRESSION: Normal chest x-ray. Impression By: Saad Mcclendon M.D. Lab Imaging Statement Laboratory radiographic studies reviewed and considered in the medical decision-making. Point of Care Testing Pulse Oximetry Pulse Ox % 98 On: Room air Interpretation Interpreted by me, Pulse oximetry normal Time 1954 ECG #1 Interpretation ECG Documented in MUSE Yes Date 06/07/19 Time 2036 Interpreted by ED physician NL ECG Interpretation Normal rate, Normal sinus rhythm, No acute ischemic changes Rate 91 Conduction/[place] Mild prolonged QTC segment Radiography X-Ray Chest View 1 view Interpretation/Wet Read by Interpret - Radiologist Reviewed by ED physician Portions of this section were scribed by Elenita Marte on 06/07/19 at 4 Re-Evaluation MDM Re-Evaluation/Progress #1 Text/Dict Note Informed pt of lab and imaging results and provided referral to [facility]. Pt agrees with plan. Time of Re-Eval 2104 Re-Eval Status Improved Portions of this section were scribed by Elenita Marte on 06/07/19 at 2114 Patient Discharge Departure Vital Signs/Condition Vital Signs First Documented: Result Date Time Pulse Ox 98 06/07 1955 B/P 115/76 06/07 1955 B/P Mean 89 06/07 1955 O2 Delivery Room air 06/07 1955 Temp 36.8 06/07 1955 Pulse 92 06/07 1955 Resp 17 06/07 1955 Last Documented: Result Date Time Pulse Ox 100 06/07 2119 B/P 115/76 06/07 1955 B/P Mean 89 06/07 1955 O2 Delivery Room air 06/07 1955 Temp 36.8 06/07 1955 Pulse 92 06/07 1955 Resp 06/07 All vital signs available at the time of this entry have been reviewed. Condition Stable Clinical Impression Clinical Impression Primary Impression: Dizziness Secondary Impressions: Palpitations Disposition Decision Discharge )( Discharged to Home Yes )( Time 2108 )( Date 06/07/19 Discharge/Care Plan Counseled Regarding Diagnosis, Lab results, Imaging studies, Need for follow-up, When to return to ED Discharge Note I have spoken with the patient and/or caregivers. I have explained the patient's condition, diagnoses and treatment plan based on the information available to me at this time. I have answered the patient's and/or caregiver's questions and addressed any concerns. The patient and/or caregivers have as good an understanding of the patient's diagnosis, condition and treatment plan as can be expected at this point. The vital signs have been stable. The patient's condition is stable and appropriate for discharge from the emergency department. The patient will pursue further outpatient evaluation with the primary care physician or other designated or consulting physician as outlined in the discharge instructions. The patient and/or caregivers are agreeable to this plan of care and follow-up instructions have been explained in detail. The patient and/or caregivers have received these instructions in written format and have expressed an understanding of the discharge instructions. The patient and/or caregivers are aware that any significant change in condition or worsening of symptoms should prompt an immediate return to this or the closest emergency department or a call to 911. Supervising Physician Note Scribe Statement Elenita Marte, 06/07/192031, scribing for and in the presence of Dr. Hernadez. Signed By: Elenita Matre, 06/07/192031 Provider Scribed Statement I personally performed the services described in this documentation and reviewed the documentation that was dictated to the scribe(s) in my presence, and it accurately records my words and actions. Jesús Hernadez, 06/08/19 Portions of this section were scribed by Elenita Marte on 06/07/19 at 2114 at 2030 RPT #:[id number] END OF [id number] 20:01:00 [facility] ([facility]) [facility] EMERGENCY PROVIDER REPORT REPORT#:[id number] REPORT STATUS: Signed DATE:12/04/18 TIME: 2000 PATIENT: ARACELIS MCCLENDON UNIT #: [id number] ROOM/BED: AGE: 28 SEX: F PCP PHYS: No Primary or Family Physician SERVICE AUTHOR: Tae Carreon MOUNTER HAND * ALL edits or amendments must be made on the electronic/computer document * HPI-Hand Prob/Inj General Confirmed Patient Yes Patient Type Existing patient Initial Greet Date/Time 12/04/181941 Assumed Care at Time 1941 Presentation Chief Complaint Finger pain R, Finger pain L, Finger swelling R, Finger swelling L Hx Obtained From Patient Onset Occurred One week ago Symptom Duration Since onset Progression since Onset Gradually worsening Caused by No trauma by history Free Text HPI Notes Free Text HPI Notes Pt is a 28 year old female who presents to the Ed with a cc of bilateral index finger paronychia noted x 1 week ago. Pt denies drainage. Review of Systems ROS Statements All systems rev neg except as marked. Focused Review of Systems Constitutional Denies: Chills, Fatigue, Fever, Lethargy, Malaise, Recent wt loss, Weakness - generalized. Musculoskeletal Denies: Back pain, Extremity pain, Extremity swelling, Joint pain, Joint swelling, Lumbar pain, Myalgia, Neck pain, Thoracic pain. Skin Reports: Abscess, Swelling. Denies: Abrasion, Burn, Contusion, Diaphoresis, Erythema, Itching, Jaundice, Laceration, Rash, Ulceration. Neurologic Denies: Generalized weakness, Headache. Past Medical History - Adult Stated Complaint PAIN LT FINGER Allergies Coded Allergies: No Known Allergies (12/04/18) Home Medications Reported Medications No Known Home Medications Review of Nursing Notes Rev avail, and agree Pt reports no significant: Past medical history, Past surgical history, Family history, Social history Smoking status for patients 13 years old or older: Never Smoker Physical Exam Vital Signs Vital Signs First Documented: Result Date Time Pulse Ox 100 12/04 194 B/P 121/63 12/04 1940 B/P Mean 82 12/04 194 O2 Delivery Room air 12/04 1939 Temp 36.9 12/04 194 Pulse 88 12/04 1939 Resp 20 12/04 1939 Last Documented: Result Date Time Pulse Ox 100 12/04 1940 B/P 121/63 12/04 194 B/P Mean 82 12/04 1939 O2 Delivery Room air 12/04 1939 Temp 36.9 12/04 194 Pulse 88 12/04 1939 Resp 12/04 Review of Vital Signs Reviewed, Vital signs normal Focused PE General/Const General/Const Awake, Alert, No acute distress, Well appearing, Well developed MS Wrist/Hand Finger Exam #1 Finger name (right and left index fingers), Swelling present, Paronychia. Skin Skin Atraumatic, Color NL, No rash, Warm, Dry, Intact, Turgor NL, No swelling Neurologic Neurologic Oriented X3, Speech NL Re-Evaluation MDM Re-Evaluation/Progress Re-Evaluation/Progress Time of Re-Eval 2002 Re-Eval Status Improved Post Splint Evaluation Cap refill < 2 seconds, Distal sensation intact, Distal motor func intact ED Course Medication(s) Ordered Medication(s) Ordered: Anti-Infective Agents Sig/Amarilys Start time Last Medication Dose Route Stop Time Status Admin Clindamycin Phosphate 600 MG X1ED STA 12/04 1948 DC 12/04 IM 12/04 Central Nervous System Agents Sig/Amarilys Start time Last Medication Dose Route Stop Time Status Admin Acetaminophen/ 1 UDTAB X1ED STA 12/04 1948 DC 12/04 Codeine Phosphate PO 12/04 Patient Discharge Departure Vital Signs/Condition Vital Signs First Documented: Result Date Time Pulse Ox 100 12/04 194 B/P 121/63 12/04 1940 B/P Mean 82 12/04 194 O2 Delivery Room air 12/04 194 Temp 36.9 12/04 1939 Pulse 88 12/04 1939 Resp 20 12/04 1939 Last Documented: Result Date Time Pulse Ox 100 12/04 1939 B/P 121/63 12/04 1939 B/P Mean 82 12/04 1939 O2 Delivery Room air 12/04 1939 Temp 36.9 12/04 1939 Pulse 88 12/04 1939 Resp 20 12/04 1939 All vital signs available at the time of this entry have been reviewed. Condition Stable Clinical Impression Clinical Impression Primary Impression: Paronychia of finger of left hand Secondary Impressions: Paronychia of finger of right hand Disposition Decision Discharge )( Discharged to Home Yes )( Time 2005 )( Date 12/04/18 Discharge/Care Plan Counseled Regarding Diagnosis, Prescriptions, Need for follow-up, When to return to ED Prescriptions clindamycin - see rx Prescriptions Reviewed Risks, Benefits, Alternative treatment Discharge Note I have spoken with the patient and/or caregivers. I have explained the patient's condition, diagnoses and treatment plan based on the information available to me at this time. I have answered the patient's and/or caregiver's questions and addressed any concerns. The patient and/or caregivers have as good an understanding of the patient's diagnosis, condition and treatment plan as can be expected at this point. The vital signs have been stable. The patient's condition is stable and appropriate for discharge from the emergency department. The patient will pursue further outpatient evaluation with the primary care physician or other designated or consulting physician as outlined in the discharge instructions. The patient and/or caregivers are agreeable to this plan of care and follow-up instructions have been explained in detail. The patient and/or caregivers have received these instructions in written format and have expressed an understanding of the discharge instructions. The patient and/or caregivers are aware that any significant change in condition or worsening of symptoms should prompt an immediate return to this or the closest emergency department or a call to 911. at 2040 RPT #:[id number] END OF [id number] 20:01:00 [facility] ([facility]) [facility] EMERGENCY PROVIDER REPORT REPORT#:[id number] REPORT STATUS: Signed DATE:12/04/18 TIME: 2000 PATIENT: ARACELIS MCCLENDON UNIT #: [id number] ROOM/BED: AGE: 28 SEX: F PCP PHYS: No Primary or Family Physician SERVICE AUTHOR: Tae Carreon MOUNTER HAND * ALL edits or amendments must be made on the electronic/computer document * Tae Carreon 12/04/18 2001: HPI-Hand Prob/Inj General Confirmed Patient Yes Patient Type Existing patient Assumed Care at Time 1941 Presentation Chief Complaint Finger pain R, Finger pain L, Finger swelling R, Finger swelling L Hx Obtained From Patient Onset Occurred One week ago Symptom Duration Since onset Progression since Onset Gradually worsening Caused by No trauma by history Free Text HPI Notes Free Text HPI Notes Pt is a 28 year old female who presents to the Ed with a cc of bilateral index finger paronychia noted x 1 week ago. Pt denies drainage. Review of Systems ROS Statements All systems rev neg except as marked. Focused Review of Systems Constitutional Denies: Chills, Fatigue, Fever, Lethargy, Malaise, Recent wt loss, Weakness - generalized. Musculoskeletal Denies: Back pain, Extremity pain, Extremity swelling, Joint pain, Joint swelling, Lumbar pain, Myalgia, Neck pain, Thoracic pain. Skin Reports: Abscess, Swelling. Denies: Abrasion, Burn, Contusion, Diaphoresis, Erythema, Itching, Jaundice, Laceration, Rash, Ulceration. Neurologic Denies: Generalized weakness, Headache. Past Medical History - Adult Stated Complaint PAIN LT FINGER Allergies Coded Allergies: No Known Allergies (12/04/18) Home Medications Reported Medications No Known Home Medications Review of Nursing Notes Rev avail, and agree Pt reports no significant: Past medical history, Past surgical history, Family history, Social history Smoking status for patients 13 years old or older: Never Smoker Physical Exam Vital Signs Vital Signs First Documented: Result Date Time Pulse Ox 100 12/04 1939 B/P 121/63 12/04 1939 B/P Mean 82 12/04 1939 O2 Delivery Room air 12/04 1939 Temp 36.9 12/04 1939 Pulse 88 12/04 1939 Resp 20 12/04 1939 Last Documented: Result Date Time Pulse Ox 100 12/04 1939 B/P 121/63 12/04 1939 B/P Mean 82 12/04 1939 O2 Delivery Room air 12/04 1939 Temp 36.9 12/04 194 Pulse 88 12/040 Resp 20 12/04 1939 Review of Vital Signs Reviewed, Vital signs normal Focused PE General/Const General/Const Awake, Alert, No acute distress, Well appearing, Well developed MS Wrist/Hand Finger Exam #1 Finger name (right and left index fingers), Swelling present, Paronychia. Skin Skin Atraumatic, Color NL, No rash, Warm, Dry, Intact, Turgor NL, No swelling Neurologic Neurologic Oriented X3, Speech NL Re-Evaluation MDM Re-Evaluation/Progress Re-Evaluation/Progress Time of Re-Eval 2002 Re-Eval Status Improved Post Splint Evaluation Cap refill < 2 seconds, Distal sensation intact, Distal motor func intact ED Course Medication(s) Ordered Medication(s) Ordered: Anti-Infective Agents Sig/Amarilys Start time Last Medication Dose Route Stop Time Status Admin Clindamycin Phosphate 600 MG X1ED STA 12/04 1948 DC 12/04 IM 12/04 Central Nervous System Agents Sig/Amarilys Start time Last Medication Dose Route Stop Time Status Admin Acetaminophen/ 1 UDTAB X1ED STA 12/04 1948 DC 12/04 Codeine Phosphate PO 12/04 Patient Discharge Departure Vital Signs/Condition Vital Signs First Documented: Result Date Time Pulse Ox 100 12/04 1939 B/P 121/63 12/04 194 B/P Mean 82 12/04 1939 O2 Delivery Room air 12/04 1939 Temp 36.9 12/04 1939 Pulse 88 12/04 1939 Resp 20 12/04 1939 Last Documented: Result Date Time Pulse Ox 100 12/04 1940 B/P 121/63 12/04 1940 B/P Mean 82 12/04 1940 O2 Delivery Room air 12/04 1939 Temp 36.9 12/04 194 Pulse 88 12/04 1940 Resp 20 12/04 1939 All vital signs available at the time of this entry have been reviewed. Condition Stable Clinical Impression Clinical Impression Primary Impression: Paronychia of finger of left hand Secondary Impressions: Paronychia of finger of right hand Disposition Decision Discharge )( Discharged to Home Yes )( Time 2005 )( Date 12/04/18 Discharge/Care Plan Counseled Regarding Diagnosis, Prescriptions, Need for follow-up, When to return to ED Prescriptions clindamycin - see rx Prescriptions Reviewed Risks, Benefits, Alternative treatment Discharge Note I have spoken with the patient and/or caregivers. I have explained the patient's condition, diagnoses and treatment plan based on the information available to me at this time. I have answered the patient's and/or caregiver's questions and addressed any concerns. The patient and/or caregivers have as good an understanding of the patient's diagnosis, condition and treatment plan as can be expected at this point. The vital signs have been stable. The patient's condition is stable and appropriate for discharge from the emergency department. The patient will pursue further outpatient evaluation with the primary care physician or other designated or consulting physician as outlined in the discharge instructions. The patient and/or caregivers are agreeable to this plan of care and follow-up instructions have been explained in detail. The patient and/or caregivers have received these instructions in written format and have expressed an understanding of the discharge instructions. The patient and/or caregivers are aware that any significant change in condition or worsening of symptoms should prompt an immediate return to this or the closest emergency department or a call to 911. Patrick Peck 12/07/18 0735: HPI-Hand Prob/Inj General Initial Greet Date/Time 12/04/181941 Physical Exam Vital Signs Vital Signs Patient Discharge Departure Vital Signs/Condition Vital Signs Supervising Physician Note MidLv Saw Pt Alone I have reviewed the PA/MOUNTER HAND's note and plan of care. I was available for consultation as needed at all times during the patient's visit in the emergency department. I agree with the clinical impression, plan and disposition. at 2040 at 0736 RPT #:[id number] END OF REPORTHCAMN
[2025-01-06] MEDS ORDERED: ONDANSETRON 4 MG/2 ML VIAL ONE (18:10)
[2025-01-06] MEDS ORDERED: KETOROLAC 30 MG/ML INJ ONE (18:10)
[2025-01-06] MEDS ORDERED: MORPHINE 4 MG/ML SYR ONE (18:10)
[2025-01-06 18:13] LABS: Absolute Eosinophils 0.2 K/uL (0-0.5); Absolute Lymphocytes (CBC) 2.2 K/uL (0.7-4.9); Absolute Monocytes 0.5 K/uL (0.1-1.3); Absolute Neutrophil 4.7 K/uL (1.8-8.0); Basophils % 0.6 % (0-1.3); Eosinophils % 2.2 % (0-4.4); Hematocrit 41.3 % (36.0-45.0); Hemoglobin 14.2 g/dL (12.0-15.0); Lymphocytes % 28.9 % (15.3-44.8); MCH 30.3 pg (27.0-35.0); MCHC 34.3 g/dL (32.0-36.0); MCV 88.1 fL (80-100); Monocytes % 6.3 % (3.3-12.3); Platelets 243 thou/uL (152-406); RBC Red Blood Cell Count 4.68 M/uL (3.86-4.86); Red Cell Distribution Width 14.2 % (12.1-15.2)
--- NOTE | 2025-01-06 18:25 | RAD REPORT ---
EXAMINATION: ONE VIEW CHEST XR CLINICAL INDICATION: CHEST PAIN TECHNIQUE: Frontal chest projection is submitted. Examination is limited by patient positioning and t echnique. COMPARISON: 02/21/2012 FINDINGS: The lungs are well inflated and clear. The heart is upper limit of normal in size. No displaced fract ures identified. IMPRESSION: No acute intrathoracic abnormalities.
[2025-01-06 18:32] LABS: Anion Gap 10.4 mEq/L (5.0-15.0); BUN Blood Urea Nitrogen 11 mg/dL (7-18); Bicarbonate 22 mEq/L (21-32); Glomerular Filtration Rate 112 ml/min (=/>90); Glucose Level 103 mg/dL (74-106); Potassium 3.4 mEq/L (3.5-5.1); Sodium Level 138 mEq/L (136-145)
[2025-01-06 18:33] LABS: Troponin High Sensitivity < 3.0 pg/mL (<58.9)
--- NOTE | 2025-01-06 19:50 | RAD REPORT ---
EXAMINATION: CTA CHEST PE CLINICAL INDICATION: CHEST PAIN TECHNIQUE: This examination was performed according to an angiographic protocol with 3D post-processi ng. This involves 3D reconstructions, MIPs, volume rendered images and/or shaded surface rendering. One or more of the following dose reduction techniques were used: Automated exposure control, adjustm ent of the mA and/or kV according to patient size, and/or iterative reconstruction. Unless otherwise specified, incidental findings do not require dedicated imaging follow-up. COMPARISON: No prior exam. FINDINGS: PULMONARY ARTERIES: Pulmonary arterial tree is not well opacified. No proximal pulmonary embolism. THORACIC AORTA: Normal caliber and configuration. LUNGS: No evidence of airspace or interstitial process. No nodules. PLEURA: No pleural effusion. No pneumothorax. MEDIASTINUM AND LYMPH NODES: No mediastinal mass or fluid collection. Normal size mediastinal, hilar, and axillary lymph nodes. OSSEOUS STRUCTURES AND CHEST WALL: Intact. UPPER ABDOMEN: Fatty liver. IMPRESSION: Pulmonary arterial tree is suboptimally opacified. No proximal pulmonary embolus suspected. Distal br anches not well assessed. No acute lung finding.
--- NOTE | 2025-01-06 20:53 | ER ---
Nurse's Notes [facility] Name: Marcella Mcclendon Age: 34 yrs Sex: Female : 1990 Arrival Date: 01/06/2025 Time: 16:56 Bed 17 Private MD: Christ Watkins Diagnosis: Chest pain, unspecified Presentation: 01/06 17:42 Chief complaint: Patient states: left sided chest pain X 1 month, pain radiates around iw to back , had a cough X 1 month , hx of asthma , pain got worse over the past week and worse today. Coronavirus screen: Client presents with at least one sign or symptom that may indicate coronavirus-19. Ebola Screen: No symptoms or risks identified at this time. Initial Sepsis Screen: Does the patient meet any 2 criteria? No. Patient's initial sepsis screen is negative. Does the patient have a suspected source of infection? No. Patient's initial sepsis screen is negative. Risk Assessment: Do you want to hurt yourself or someone else? Patient reports no desire to harm self or others. Onset of symptoms was December 09, 2024. 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 - Infectious Disease History:: Denies. - Social history:: Smoking status: Patient denies any tobacco usage or history of. Screenin:45 [facility] ED Fall Risk Assessment (Adult) History of falling in the last 3 months, me1 including since admission No falls in past 3 months (0 pts) Confusion or Disorientation No (0 pts) Intoxicated or Sedated No (0 pts) Impaired Gait No (0 pts) Mobility Assist Device Used No (0 pt) Altered Elimination No (0 pt) Score/Fall Risk Level 0 - 2 = Low Risk Maintained a safe environment, Provided non-skid footwear, Hourly rounding (assess needs \T\ fall precautionary measures) done. Abuse screen: Denies threats or abuse. Nutritional screening: No deficits noted. Tuberculosis screening: No symptoms or risk factors identified. Assessment: 17:45 General: Appears uncomfortable, well groomed, well developed, well nourished, Behavior me1 is calm, cooperative, appropriate for age, Reports left sided chest pain X 1 month, pain radiates around to back , had a cough X 1 month , hx of asthma , pain got worse over the past week and worse today. Pain: Complains of pain in anterior aspect of left upper chest Pain radiates to left subscapular area Pain currently is 9 out of 10 on a pain scale. Quality of pain is described as sharp, Pain began about a month ago Is continuous. Neuro: Level of Consciousness is awake, alert, obeys commands, Oriented to person, place, time, situation, Appropriate for age. Cardiovascular: Patient's skin is warm and dry. Respiratory: Airway is patent Respiratory effort is even, unlabored, Respiratory pattern is regular, symmetrical. Respiratory: Reports pain with respiration. GI: No signs and/or symptoms were reported involving the gastrointestinal system. : No signs and/or symptoms were reported regarding the genitourinary system. EENT: No signs and/or symptoms were reported regarding the EENT system. Derm: Skin is intact, is healthy with good turgor, Skin is pink, warm \T\ dry. Musculoskeletal: No signs and/or symptoms reported regarding the musculoskeletal system. Vital Signs: 17:42 Resp 19; Weight 86.18 kg; Height 4 ft. 11 in. ; Pain 9/10; iw 18:00 BP 108 / 76; Pulse 91; Resp 16; Pulse Ox 100% ; me1 19:00 BP 113 / 72; Pulse 88; Resp 19; Pulse Ox 100% ; me1 20:00 BP 108 / 74; Pulse 97; Resp 17; Pulse Ox 100% ; me1 20:56 BP 121 / 91; Pulse 92; Resp 18; Pulse Ox 100% ; me1 17:42 Body Mass Index 38.37 (86.18 kg, 149.86 cm) iw 17:42 Pain Scale: Adult iw ED Course: 16:57 Patient arrived in ED. am2 16:58 Christ Watkins is Private Physician. am2 16:59 Jasmyne Melo FNP-C is [facility]. kb 16:59 Anant Gruber MD is Attending Physician. kb 17:44 Triage completed. iw 17:45 No provider procedures requiring assistance completed. Patient maintains SpO2 me1 saturation greater than 95% on room air. 17:45 Patient has correct armband on for positive identification. Bed in low position. Call me1 light in reach. Side rails up X 1. Provided Education on: POC. Verbalized understanding.. Client placed on continuous cardiac and pulse oximetry monitoring. NIBP monitoring applied. clinical research monitor on. Pulse ox on. NIBP on. 17:57 Talita Reed, RN is Primary Nurse. me1 18:07 Basic Metabolic Panel Sent. me1 18:07 CBC with Diff Sent. me1 18:07 D-Dimer Sent. me1 18:07 Troponin HS Sent. me1 18:19 XRAY Chest (1 view) In Process Unspecified. EDMS 18:22 Initial lab(s) drawn, by me, sent to lab. EKG done, by ED staff, reviewed by Jasmyne CAMPOS. Inserted saline lock: 22 gauge in right antecubital area, using aseptic technique. 18:23 Basic Metabolic Panel Sent. me1 18:23 Troponin HS Sent. me1 19:45 CT Chest For PE Angio In Process Unspecified. EDMS 21:11 IV discontinued, intact, bleeding controlled, No redness/swelling at site. Pressure me1 dressing applied. 21:11 Arm band placed on Patient placed in an exam room. me1 Administered Medications: 18:23 Drug: Ketorolac IVP 15 mg IVP once Route: IVP; Site: right antecubital; me1 20:55 Follow up: Response: No adverse reaction; Pain is decreased me1 18:23 Drug: morphine IVP or IV 4 mg IVP once over 4 mins Route: IVP; Infused Over: 4 mins; me1 Site: right antecubital; 20:54 Follow up: Response: No adverse reaction; Pain is decreased me1 18:23 Drug: Ondansetron IVP 4 mg IVP once; over 2 minutes Route: IVP; Site: right antecubital;me1 20:54 Follow up: Response: No adverse reaction; Nausea is decreased me1 21:03 Drug: Decadron - Dexamethasone IVP 10 mg IVP once Route: IVP; Site: right antecubital; me1 21:03 Follow up: Response: No adverse reaction me1 Medication: 17:45 VIS not applicable for this client. me1 Outcome: 20:53 Discharge ordered by . deirdre 21:11 Discharged to home ambulatory, me1 21:11 Condition: stable 21:11 Discharge instructions given to patient, Instructed on discharge instructions, follow up and referral plans. medication usage, Demonstrated understanding of instructions, follow-up care, medications, Prescriptions given X 3, 21:11 Patient left the ED. me1 Signatures: Dispatcher [employer] EDCO Jasmyne Melo, DAIRY EQUIPMENT INSTALLER-C DAIRY EQUIPMENT INSTALLER-Ckb Uyen Teran RN RN Nyasia Obregon Michelle, RN RN me1 Corrections: (The following items were deleted from the chart) 20:57 17:42 Chief complaint: Patient states: left sided chest pain X 1 month, pain radiates me1 around to back , had a cough X 1 month , hx of asthma , pain got worse over the past week and worse today iw
--- NOTE | 2025-01-06 20:53 | EDPHYS ---
Physician Documentation [facility] Name: Marcella Mcclendon Age: 34 yrs Sex: Female : 1990 Arrival Date: 01/06/2025 Time: 16:56 Bed 17 Private MD: Christ Watkins ED Physician Anant Gruber HPI: 01/06 17:28 This 34 yrs old Female presents to ER via Unassigned with complaints of Chest Pain - X1 kb month, Back Pain, Flank Pain. 17:28 Pt is a 34 year old female who presents for left chest pain that radiates to left shoulder area with shortness of breath that started one month ago and has been worse over the last week. Denies fever, cough, congestion, n/v/d. Pain aggravated by movement and breathing. States she had a severe cough about 3 weeks ago, but that has been gone for 2 weeks. . 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 - Infectious Disease History:: Denies. - Social history:: Smoking status: Patient denies any tobacco usage or history of. ROS: 17:28 Constitutional: As per HPI kb Exam: 17:28 Constitutional: This is a well developed, well nourished patient who is awake, alert, kb and in no acute distress. Head/Face: Normocephalic, atraumatic. ENT: Moist Mucous membranes Cardiovascular: Regular rate Respiratory: Respirations even and unlabored. No increased work of breathing. Talking in full sentences Skin: Warm, dry with normal turgor. Normal color. MS/ Extremity: Pulses equal, no cyanosis. Neurovascular intact. Full, normal range of motion. Neuro: Awake and alert, GCS 15, oriented to person, place, time, and situation. 19:09 ECG was reviewed by the Attending Physician. kb Vital Signs: 17:42 Resp 19; Weight 86.18 kg; Height 4 ft. 11 in. ; Pain 9/10; iw 18:00 BP 108 / 76; Pulse 91; Resp 16; Pulse Ox 100% ; me1 19:00 BP 113 / 72; Pulse 88; Resp 19; Pulse Ox 100% ; me1 20:00 BP 108 / 74; Pulse 97; Resp 17; Pulse Ox 100% ; me1 20:56 BP 121 / 91; Pulse 92; Resp 18; Pulse Ox 100% ; me1 17:42 Body Mass Index 38.37 (86.18 kg, 149.86 cm) iw 17:42 Pain Scale: Adult iw MDM: 16:59 Medical Screening Exam initiated kb 17:32 Differential diagnosis: fracture, pleurisy, PE, arrhythmia. Data reviewed: vital signs, kb nurses notes. Historians other than the Patient: Spouse/Significant Other: spouse. 20:52 Counseling: I had a detailed discussion with the patient and/or guardian regarding the kb historical points, exam findings, and any diagnostic results supporting the discharge/admit diagnosis, lab results, radiology results, the need for outpatient follow up, a family practitioner, to return to the emergency department if symptoms worsen or persist or if there are any questions or concerns that arise at home. 03 17:32 Order name: Basic Metabolic Panel; Complete Time: 18:35 kb 01/06 17:32 Order name: CBC with Diff; Complete Time: 18:29 kb 01/06 17:32 Order name: D-Dimer; Complete Time: 18:29 kb 01/06 17:32 Order name: Troponin HS; Complete Time: 18:35 kb 01/06 17:32 Order name: XRAY Chest (1 view); Complete Time: 18:29 kb 01/06 18:30 Order name: CT Chest For PE Angio; Complete Time: 19:51 kb 01/06 17:32 Order name: Cardiac monitoring; Complete Time: 18:22 kb 01/06 17:32 Order name: EKG - Nurse/Tech; Complete Time: 18:22 kb 01/06 17:32 Order name: IV Saline Lock; Complete Time: 18:07 kb 01/06 17:32 Order name: Labs collected and sent; Complete Time: 18:07 kb 01/06 17:32 Order name: O2 Per Protocol; Complete Time: 18:07 kb 01/06 17:32 Order name: O2 Sat Monitoring; Complete Time: 18:07 kb 01/06 20:54 Order name: Vital Signs; Complete Time: 20:55 kb EC:09 Rate is 88 beats/min. Rhythm is regular. QRS [place] is Normal. ND interval is normal at kb 132 msec. QRS interval is normal at 82 msec. QT interval is normal at 488 msec. Administered Medications: 18:23 Drug: Ketorolac IVP 15 mg IVP once Route: IVP; Site: right antecubital; me1 20:55 Follow up: Response: No adverse reaction; Pain is decreased me1 18:23 Drug: morphine IVP or IV 4 mg IVP once over 4 mins Route: IVP; Infused Over: 4 mins; me1 Site: right antecubital; 20:54 Follow up: Response: No adverse reaction; Pain is decreased me1 18:23 Drug: Ondansetron IVP 4 mg IVP once; over 2 minutes Route: IVP; Site: right antecubital;me1 20:54 Follow up: Response: No adverse reaction; Nausea is decreased me1 21:03 Drug: Decadron - Dexamethasone IVP 10 mg IVP once Route: IVP; Site: right antecubital; me1 21:03 Follow up: Response: No adverse reaction me1 Disposition: 19:19 Co-signature as Attending Physician, Anant Gruber MD I reviewed the patient's care rt provided by the Advanced Practice Provider and agree with the diagnosis and treatment plan. Disposition Summary: 01/06/25 20:53 Discharge Ordered Notes: Location: Home Condition: Stable kb Diagnosis - Chest pain, unspecified kb Followup: kb - With: Emergency Department - When: As needed - Reason: Worsening of condition Followup: kb - With: Private Physician - When: 2 - 3 days - Reason: Recheck today's complaints, Continuance of care, Re-evaluation by your physician Discharge Instructions: - Discharge Summary Sheet kb - Chest Wall Pain, [id number] kb - Pleurisy, [id number] kb Forms: - Medication Reconciliation Form kb - Antibiotic Education kb - Prescription Opioid Use kb - Patient Portal Instructions kb - Leadership Thank You Letter kb Prescriptions: - Prednisone 20 mg Oral Tablet - take 1 tablet ORAL route once daily for 5 days; 5 tablet; Refills: 0, Product kb Selection Permitted - Diclofenac Sodium 75 mg Oral tablet, delayed release (enteric coated) - take 1 tablet ORAL route 2 times per day As needed; 30 tablet; Refills: 0, kb Product Selection Permitted - orphenadrine citrate 100 mg Oral Tablet Sustained Release - take 1 tablet ORAL route 2 times per day As needed; 20 tablet; Refills: 0, kb Product Selection Permitted Signatures: Dispatcher [employer] Jasmyne Chinchilla, EMT BASIC-C EMT BASIC-Uyen Leahy RN RN iw Anant Gruber MD MD rt Talita Reed RN RN me1 Corrections: (The following items were deleted from the chart) 17:31 17:28 Pt is a 34 year old female who presents for left chest pain that radiates to left kb shoulder area with shortness of breath that started one month ago and has been worse over the last week. Denies fever, cough, congestion, n/v/d. . kb 17:32 17:32 Chest Single View+[id number] ordered. [facility]
[2025-01-06] MEDS ORDERED: dexAMETHasone 10 MG/ML VIAL ONE (21:01)
[2025-01-06 22:00] VITALS: O2SAT 100
[2025-01-06 22:05] VITALS: BP 121/91
--- NOTE | 2025-01-07 12:04 | EKG ---
Test Date: 2025-01-06 Test Time: 18:15:57 Site Safety Coordinator: MEASUREMENT RESULTS: Intervals: Rate: 88 CA: 132 QRSD: 82 QT: 404 QTc: 488 [place]: P: 64 CA: 132 QRS: 59 T: 50 INTERPRETIVE STATEMENTS: Normal sinus rhythm Nonspecific ST and T wave abnormality Prolonged QT Abnormal ECG Compared to ECG 05/14/2017 19:56:14 ST (T wave) deviation now present Prolonged QT interval now present Sinus arrhythmia no longer present Myocardial infarct finding no longer present Electronically Signed On 01-07-25 12:02:36 MOUNTING INSPECTOR by Vinnie Garcia
== END 2025-01-06 21:11 | disposition home or self-care (01) ==
LOC: ER 16:56
DX: R07.9 Chest pain, unspecified (principal)
CPT/HCPCS: 36415; 71045; 71275; 80048; 84484; 85025; 85379; 93005; 96374; 96375; 99285; J1100; J2405; Q9967